=== PATIENT | female | born 1950 | race Caucasian/White ===

== ENCOUNTER 2017-06-11 17:21 | Emergency (ER) | payer MEDICARE, MEDICAID ==
[2017-06-11 17:41] VITALS: BP 147/85
--- NOTE | 2017-06-11 18:23 | EDM.PDOC ---
ED HPI GENERAL MEDICAL PROBLEM - General Chief Complaint: Upper Extremity Injury/Pain Stated Complaint: LUMP ON ARM Time Seen by Provider: 06/11/17 18:00 Source of Information: Reports: Patient, RN Notes Reviewed, Other (assisted staff member) History Limitations: Reports: Other (intellectually delayed) - History of Present Illness INITIAL COMMENTS - FREE TEXT/NARRATIVE: The patient resides in a senior living, and, according to the staff member who accompanies the patient, the patient was recently moved to a new room where the furniture may slide. Staff apparently noticed a bruise to the patient's left upper arm yesterday, then today they felt that it was swollen and warm to the touch. It is not known how the patient acquired the ecchymosis, although the staff is not aware of the patient falling. Unfortunately, the patient is not able to provide any information. No known prior left upper extremity injury. The patient's PCP is Dr. Corral. - Related Data Allergies Allergy/AdvReac Type Severity Reaction Status Date / Time aspertame Allergy Shaking Uncoded 06/11/17 20:07 Home Meds: Home Meds Acetaminophen [Tylenol Arthritis Pain] 1,300 mg PO BID 07/09/16 [History] Acetaminophen [Tylenol] 650 mg PO Q4H PRN 07/09/16 [History] Aspirin 81 mg PO DAILY 07/09/16 [History] Calcium Carbonate/Vitamin D3 [Calcium 500-Vit D3 200 Caplet] 500 tab PO TID [History] Carbidopa/Levodopa [Carbidopa-Levo 10-100 mg Odt] 1 tab PO BID 07/09/16 [History ] Carbidopa/Levodopa [Carbidopa-Levodopa 25-100 Tab] 1 tab PO BEDTIME 07/09/16 [ History] Divalproex Sodium 250 mg PO DAILY 07/09/16 [History] Divalproex Sodium 500 mg PO BEDTIME 07/09/16 [History] Docusate Calcium [Jeramy-Tin] 240 mg PO BID 07/09/16 [History] Ibuprofen [Motrin] 400 mg PO TID 07/09/16 [History] Magnesium Hydroxide [Milk of Magnesia] 4 tsp PO DAILY PRN 07/09/16 [History] Multivit-Min/FA/Lycopene/Lut [Certavite Sr-Antioxidant Tab] 1 tab PO DAILY 07/09 [History] Nystatin/Triamcinolone Crm [Mycolog Crm] 1 applic TOP TID PRN 07/09/16 [History] Omeprazole 20 mg PO DAILY 07/09/16 [History] Primidone 100 mg PO DAILY 07/09/16 [History] Thioridazine [Mellaril] 5 mg PO BEDTIME 07/09/16 [History] risperiDONE 2 mg PO BID 07/09/16 [History] Past Medical History HEENT History: Reports: Cataract Musculoskeletal History: Reports: Osteoporosis Neurological History: Reports: Other (See Below) (Intellectually delayed) Endocrine/Metabolic History: Reports: Other (See Below) (Phenylketonuria (PKU)) - Past Surgical History Musculoskeletal Surgical History: Reports: Other (See Below) (Bilateral knee surgery (unspecified), and surgery on both arms (unspecified)) Social & Family History - Tobacco Use Smoking Status *Q: Never Smoker - Alcohol Use Alcohol Use History: No - Recreational Drug Use Recreational Drug Use: No - Living Situation & Occupation Living situation: Reports: Single, Other (assisted) Occupation: Disabled Review of Systems - Review of Systems Review Of Systems: See Below Constitutional: Reports: No Symptoms Eyes: Reports: No Symptoms Ears: Reports: No Symptoms Nose: Reports: No Symptoms Mouth/Throat: Reports: No Symptoms Respiratory: Reports: No Symptoms Cardiovascular: Reports: No Symptoms GI/Abdominal: Reports: No Symptoms Genitourinary: Reports: No Symptoms Musculoskeletal: Reports: No Symptoms Skin: Reports: No Symptoms Neurological: Reports: No Symptoms Psychiatric: Reports: No Symptoms ED EXAM, GENERAL - Physical Exam Exam: See Below Exam Limited By: No Limitations General Appearance: Alert, WD/WN, No Apparent Distress Extremities: Other (There is an approximately 13 semierect 10 cm ecchymosis to the anteromedial aspect of the patient's left upper arm. It may be tender to palpation. Possible tenderness to palpation of the humerus, but no obvious deformity to palpation. Neurovascular status of the left upper extremity is intact.) ED TRAUMA EXTREMITY PROCEDURES - Joint Reduction Site: Shoulder (L) Sedation: Conscious Cedation Pre-Procedure NV Status: Normal Post-Procedure NV Status: Normal Technique: Traction/Counter Traction Number of Attempts: 1 Post-Reduction Imaging: Completely Reduced, Fracture Seen Joint Reduction Complications: No Course - Vital Signs Last Recorded V/S: Last Vital Signs Temp 37.2 C 06/11/17 17:33 Pulse 93 06/11/17 17:33 Resp 16 06/11/17 17:33 BP 147/85 H 06/11/17 17:33 Pulse Ox 94 L 06/11/17 17:45 - Orders/Labs/Meds Orders: Active Orders 24 hr Category Date Time Status Humerus Lt [CR] Stat Exams 06/11/17 18:17 Taken Shoulder Comp Lt [CR] Stat Exams 06/11/17 22:06 Ordered Shoulder wo Cont Lt [CT] Stat Exams 06/11/17 19:49 Taken Meds: Medications Discontinued Medications Generic Name Dose Route Start Last Admin Trade Name Freq PRN Reason Stop Dose Admin Hydromorphone HCl Confirm 06/11/17 21:46 Dilaudid Administered 06/11/17 21:47 Dose 2 mg .ROUTE .STK-MED ONE Midazolam HCl Confirm 06/11/17 21:45 Versed 1 Mg/Ml Administered 06/11/17 21:46 Dose 4 mg .ROUTE .STK-MED ONE - Re-Assessments/Exams Free Text/Narrative Re-Assessment/Exam: 06/11/17 19:18 3-view radiographs of the left humerus appears to demonstrate an anterior dislocation. There appears to be a bony fragment near the posterior aspect of the humeral head, likely off of the glenoid. Osteopenia. Formal read per the Radiologist pending. 06/11/17 19:48 I spoke with the patient's sister, Darlin Leon, who is the patient's guardian. She agrees to proceeding with closed reduction of the shoulder under sedation. I am going to order a CT scan of the shoulder to better determine the anatomy, prior to attempting to reduce the shoulder. 06/11/17 21:26 CT of the shoulder without contrast is read by [facility] as "Comminuted Hill-Sachs fracture deformity and anteroinferior dislocation. There is associated joint effusion and soft tissue swelling." Case then discussed with Dr. Flores at 21:23. He recommends that I attempt to reduce the shoulder. If the dislocation is chronic, as suggested by the joint effusion and soft tissue swelling, I may not be able to reduce the shoulder, and if that is the case, he recommends that I admit the patient overnight, and he will take her to the operating room tomorrow to try to reduce it. Sometimes these shoulders cannot be reduced, and the patient would then be discharged with the dislocation as a permanent condition. 06/11/17 22:06 After sedation with Versed 1 mg and Dilaudid 1 mg, attempt was made to reduce the shoulder via the traction/countertraction method. The sedation did not appear to be adequate, therefore the patient was given a second milligram of Dilaudid. Additional attempts were made, but I don't think the shoulder is reduced. I have ordered a post-procedure shoulder x-ray to confirm. 06/11/17 22:26 Y-view of the left shoulder appears to demonstrate reduction of the shoulder. Formal read per the Radiologist pending. I will order an arm sling, and discharged the patient home. I would like her to follow-up with Dr. Flores. Departure - Departure Time of Disposition: 22:27 Disposition: Home, Self-Care 01 Condition: Good Clinical Impression: Dislocation of left shoulder joint - Discharge Information Referrals: Kris Corral MD [Primary Care Provider] - Merrill Flores MD [Physician] - Forms: ED Department Discharge Additional Instructions: Ms. Bess was seen in the emergency room for a large bruise on her upper left arm. X-rays of the left arm showed that her left shoulder was dislocated, and there is a fracture of the humeral head. Following sedation, her left shoulder has been reduced (put back in place). Her left arm has been placed into an arm sling. She may have [id number] ibuprofen as needed for discomfort. Have her follow-up with the Orthopedic Surgeon Dr. Flores this week. If any other problems, please do not hesitate to return Ms. Bess to the ER. - My Orders Last 24 Hours: My Active Orders 06/11/17 18:17 Humerus Lt [CR] Stat 06/11/17 19:49 Shoulder wo Cont Lt [CT] Stat 06/11/17 22:06 Shoulder Comp Lt [CR] Stat - Assessment/Plan Last 24 Hours: My Active Orders 06/11/17 18:17 Humerus Lt [CR] Stat 06/11/17 19:49 Shoulder wo Cont Lt [CT] Stat 06/11/17 22:06 Shoulder Comp Lt [CR] Stat
[2017-06-11] MEDS ORDERED: Midazolam 1 MG/ML 2 ML SDV ONE (21:45)
[2017-06-11] MEDS ORDERED: Midazolam 1 MG/ML 2 ML SDV IVPUSH ONE (21:45)
[2017-06-11] MEDS ORDERED: HYDROmorphone 1 MG/ML Syringe ONE (21:46)
[2017-06-11] MEDS ORDERED: HYDROmorphone 1 MG/ML Syringe IVPUSH ONE (21:46)
[2017-06-12] MEDS ORDERED: HYDROmorphone 1 MG/ML Syringe IVPUSH ONE (02:51)
--- NOTE | 2017-06-12 09:50 | CR ---
Left shoulder: Y scapular view was obtained. Comparison: Previous exams are available. Previous dislocation has been reduced. Previous fracture also shows better alignment and is poorly seen on this Y scapular view. No additional abnormality is seen. Impression: 1. Previous dislocation has been reduced. Fracture fragments also appear better in alignment. Diagnostic code #1
--- NOTE | 2017-06-12 09:51 | CR ---
Left humerus: Two views of the left humerus were obtained. Comparison: No previous study. Inferior and anterior dislocation is seen of the humerus in relation to the glenoid. Bony fragments are seen off the greater tuberosity of the humerus. No definite fracture within the glenoid is seen. Acromioclavicular joint is unremarkable. Other portions of the left humerus study appear within normal limits. There is a dystrophic calcification being seen within the soft tissues of the left upper extremity. Impression: 1. Fracture and dislocation of left shoulder. Diagnostic code #3
--- NOTE | 2017-06-12 11:03 | CT ---
CT left shoulder Technique: Multiple axial sections were obtained through the left shoulder. Comparison: Previous humerus study performed earlier on the same date (6:48 PM). Humeral head is dislocated in an anterior and inferior direction. Comminuted fracture identified involving the greater tuberosity. Greater tuberosity fragments show significant displacement. Soft tissue swelling is identified. No additional fracture is seen on this exam. Several old left-sided rib fractures are seen. Impression: 1. Inferior and anterior dislocation of the humeral head. 2. Displaced and comminuted greater tuberosity fracture. 3. Several old appearing left-sided rib fractures. Diagnostic code #5 I agree with preliminary report issued by [facility] ([facility] report finalized on , 10:20 PM Central Time) [id number]
== END 2017-06-11 23:40 | disposition home or self-care (01) ==
LOC: JD.ED 17:21
DX: S43.015A Anterior dislocation of left humerus, initial encounter (principal); Z79.82 Long term (current) use of aspirin; Z79.899 Other long term (current) drug therapy; Z88.8 Allergy status to other drugs, medicaments and biological substances; X58.XXXA Exposure to other specified factors, initial encounter
CPT/HCPCS: 23650; 73020; 73060; 73200; 96374; 96375; 99284; J1170; J2250

== ENCOUNTER 2017-06-15 10:03 | Emergency (ER) | payer MEDICARE, MEDICAID ==
[2017-06-15 10:41] VITALS: BP 124/72
[2017-06-15] MEDS ORDERED: Desmopressin 40 MCG/10 ML ML SUBCUT ONE (11:04)
--- NOTE | 2017-06-15 11:14 | EDM.PDOC ---
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 The patient reportedly fell 3 or 4 days ago and was seen in this emergency department and diagnosed with a left humerus fracture which was treated with a sling. She followed up with clinic provider Dr. Corral today who ordered a head scan due to her being less steady on her feet compared to usual. According to her caretakers who are here with her today, she hasn't had any other significant change in her mental status. At baseline she is able to talk using very simple words and able to help with her activities of daily living and walk without assistance. Today she' s been able to walk but requires existence and is unsteady and also just seems uncomfortable. Her head scan at outside clinic reportedly showed a subdural hemorrhage so she was sent here. She does take baby aspirin but no other blood thinners. No vomiting. No additional complaint. - Related Data Allergies Allergy/AdvReac Type Severity Reaction Status Date / Time aspertame Allergy Shaking Uncoded 06/15/17 10:36 Home Meds: Home Meds Acetaminophen [Tylenol Arthritis Pain] 1,300 mg PO BID 07/09/16 [History] Acetaminophen [Tylenol] 650 mg PO Q4H PRN 07/09/16 [History] Aspirin 81 mg PO DAILY 07/09/16 [History] Calcium Carbonate/Vitamin D3 [Calcium 500-Vit D3 200 Caplet] 500 tab PO TID [History] Carbidopa/Levodopa [Carbidopa-Levo 10-100 mg Odt] 1 tab PO BID 07/09/16 [History ] Carbidopa/Levodopa [Carbidopa-Levodopa 25-100 Tab] 1 tab PO BEDTIME 07/09/16 [ History] Divalproex Sodium 250 mg PO DAILY 07/09/16 [History] Divalproex Sodium 500 mg PO BEDTIME 07/09/16 [History] Docusate Calcium [Jeramy-Tin] 240 mg PO BID 07/09/16 [History] Ibuprofen [Motrin] 400 mg PO TID 07/09/16 [History] Magnesium Hydroxide [Milk of Magnesia] 4 tsp PO DAILY PRN 07/09/16 [History] Multivit-Min/FA/Lycopene/Lut [Certavite Sr-Antioxidant Tab] 1 tab PO DAILY 07/09 [History] Nystatin/Triamcinolone Crm [Mycolog Crm] 1 applic TOP TID PRN 07/09/16 [History] Omeprazole 20 mg PO DAILY 07/09/16 [History] Primidone 100 mg PO DAILY 07/09/16 [History] Thioridazine [Mellaril] 5 mg PO BEDTIME 07/09/16 [History] risperiDONE 2 mg PO BID 07/09/16 [History] Past Medical History HEENT History: Reports: Cataract Gastrointestinal History: Reports: Other (See Below) Other Gastrointestinal History: PKU Musculoskeletal History: Reports: Osteoporosis Neurological History: Reports: Other (See Below) Psychiatric History: Reports: Other (See Below) Other Psychiatric History: severe mental retardation Endocrine/Metabolic History: Reports: Other (See Below) - Past Surgical History Musculoskeletal Surgical History: Reports: Other (See Below) Social & Family History - Tobacco Use Smoking Status *Q: Never Smoker - Recreational Drug Use Recreational Drug Use: No - Living Situation & Occupation Living situation: Reports: Single, Other (custodial) Occupation: Disabled ED ROS GENERAL - Review of Systems Review Of Systems: Unable To Obtain ED EXAM, NEURO - Physical Exam Exam: See Below Exam Limited By: Uncooperative General Appearance: Alert, Other (eyes closed, looks uncomfortable appearing, nonverbal, calm, doesn't cooperate with exam) Eye Exam: Bilateral Eye: EOMI, PERRL Ears: Normal External Exam Nose: Normal Inspection, Normal Mucosa, No Blood Head Exam: Atraumatic, Normocephalic Neck: Supple, Non-Tender Respiratory/Chest: No Respiratory Distress, Lungs Clear, Normal Breath Sounds, Chest Non-Tender Cardiovascular: Normal Peripheral Pulses, Regular Rate, Rhythm GI/Abdominal: Soft, Non-Tender, No Distention. No: Rebound Neurological: Other (awake, alert, no facial droop, moves all extremities, doesn 't otherwise cooperate with exam) Extremities: Other (LUE in sling) Psychiatric: Flat Affect, Other (similar to baseline per foot and ankle surgeon) Skin Exam: Warm, Dry, Intact, Normal Color, No Rash Course - Vital Signs Last Recorded V/S: Last Vital Signs Temp 36.9 C 06/15/17 10:36 Pulse Resp BP 124/72 06/15/17 10:36 Pulse Ox - Orders/Labs/Meds Orders: Active Orders 24 hr Category Date Time Status Peripheral IV Care [RC] . DIRECTED Care 06/15/17 10:50 Active PATIENT RETYPE [BBK] Stat Lab 06/15/17 11:58 Results TYPE AND SCREEN [BBK] Stat Lab 06/15/17 11:58 Results Labs: Laboratory Tests 06/15/17 06/15/17 06/15/17 Range/Units 11:58 11:58 11:58 WBC 8.24 (3.98-10.04) K/mm3 RBC 3.20 L (3.98-5.22) M/mm3 Hgb 10.6 L (11.2-15.7) gm/L Hct 32.6 L (34.1-44.9) % MCV 101.9 H (79.4-94.8) fl MCH 33.1 H (25.6-32.2) pg MCHC 32.5 (32.2-35.5) g/dl RDW Std Deviation 46.1 (36.4-46.3) fL Plt Count 253 (182-369) K/mm3 MPV 9.6 (9.4-12.3) fl Neut % (Auto) 76.8 H (34.0-71.1) % Lymph % (Auto) 13.0 L (19.3-51.7) % Florence % (Auto) 9.6 (4.7-12.5) % Eos % (Auto) 0.2 L (0.7-5.8) Baso % (Auto) 0.2 (0.1-1.2) % Neut # (Auto) 6.32 H (1.56-6.13) K/mm3 Lymph # (Auto) 1.07 L (1.18-3.74) K/mm3 Florence # (Auto) 0.79 H (0.24-0.36) K/mm3 Eos # (Auto) 0.02 L (0.04-0.36) K/mm3 Baso # (Auto) 0.02 (0.01-0.08) K/mm3 PT 10.6 (8.0-13.0) SECONDS INR 0.97 Sodium 142 (136-145) mEq/L Potassium 3.8 (3.5-5.1) mEq/L Chloride 106 (98-107) mEq/L Carbon Dioxide 26 (21-32) mEq/L Anion Gap 13.8 (5-15) BUN 16 (7-18) mg/dL Creatinine 0.7 (0.55-1.02) mg/dL Est Cr Clr Drug Dosing 60.84 mL/min Estimated GFR (MDRD) > 60 (>60) mL/min BUN/Creatinine Ratio 22.9 H (14-18) Glucose 97 (80-115) mg/dL Calcium 9.0 (8.5-10.1) mg/dL Total Bilirubin 0.4 (0.2-1.0) mg/dL AST 22 (15-37) U/L ALT 25 (14-59) U/L Alkaline Phosphatase 56 (46-116) U/L Total Protein 7.3 (6.4-8.2) g/dl Albumin 3.2 L (3.4-5.0) g/dl Globulin 4.1 gm/dL Albumin/Globulin Ratio 0.8 L (1-2) Blood Type Gel Antibody Screen 06/15/17 Range/Units 11:58 WBC (3.98-10.04) K/mm3 RBC (3.98-5.22) M/mm3 Hgb (11.2-15.7) gm/L Hct (34.1-44.9) % MCV (79.4-94.8) fl MCH (25.6-32.2) pg MCHC (32.2-35.5) g/dl RDW Std Deviation (36.4-46.3) fL Plt Count (182-369) K/mm3 MPV (9.4-12.3) fl Neut % (Auto) (34.0-71.1) % Lymph % (Auto) (19.3-51.7) % Florence % (Auto) (4.7-12.5) % Eos % (Auto) (0.7-5.8) Baso % (Auto) (0.1-1.2) % Neut # (Auto) (1.56-6.13) K/mm3 Lymph # (Auto) (1.18-3.74) K/mm3 Florence # (Auto) (0.24-0.36) K/mm3 Eos # (Auto) (0.04-0.36) K/mm3 Baso # (Auto) (0.01-0.08) K/mm3 PT (8.0-13.0) SECONDS INR Sodium (136-145) mEq/L Potassium (3.5-5.1) mEq/L Chloride (98-107) mEq/L Carbon Dioxide (21-32) mEq/L Anion Gap (5-15) BUN (7-18) mg/dL Creatinine (0.55-1.02) mg/dL Est Cr Clr Drug Dosing mL/min Estimated GFR (MDRD) (>60) mL/min BUN/Creatinine Ratio (14-18) Glucose (80-115) mg/dL Calcium (8.5-10.1) mg/dL Total Bilirubin (0.2-1.0) mg/dL AST (15-37) U/L ALT (14-59) U/L Alkaline Phosphatase (46-116) U/L Total Protein (6.4-8.2) g/dl Albumin (3.4-5.0) g/dl Globulin gm/dL Albumin/Globulin Ratio (1-2) Blood Type O POSITIVE Gel Antibody Screen Negative Meds: Medications Discontinued Medications Generic Name Dose Route Start Last Admin Trade Name Otto PRN Reason Stop Dose Admin Desmopressin Acetate 20 mcg 06/15/17 11:30 06/15/17 12:07 Desmopressin SUBCUT 06/15/17 11:31 Not Given ONETIME ONE Non-Formulary Medication 1 each 06/15/17 12:08 06/15/17 12:22 Nf Drug .XX 06/15/17 12:09 1 each NOW STA Administration - Re-Assessments/Exams Free Text/Narrative Re-Assessment/Exam: 06/15/17 11:16 11:00 message left for POA sister Nydia [phone]. Transfer process initiated at 11:15, [facility] called awaiting callback from [facility]. DDAVP ordered given daily aspirin, no additional bloodthinners on med list. Sister consents for transfer per ED nursing staff who have spoken with her. 06/15/17 11:[address] Mcgarry, neurosurgery at [facility], who accepts patient for transfer, recommends patient go through the ED given fall/co-morbidities. 06/15/17 11:32 Dr. Garnett in ED who accepts patient for transfer. Departure - Departure Time of Disposition: 12:00 Disposition: DC/Tfer to [facility] 02 Clinical Impression: Subdural hematoma Cerebral contusion Qualifiers: Encounter type: initial encounter Laterality: right Loss of consciousness presence/duration: without LOC Qualified Code(s): S06.310A - Contusion and laceration of right cerebrum without loss of consciousness, initial encounter - Discharge Information Referrals: Kris Corral MD [Primary Care Provider] - Forms: ED Department Discharge - My Orders Last 24 Hours: My Active Orders 06/15/17 10:50 Peripheral IV Care [RC] . DIRECTED 06/15/17 11:58 PATIENT RETYPE [BBK] Stat TYPE AND SCREEN [BBK] Stat - Assessment/Plan Last 24 Hours: My Active Orders 06/15/17 10:50 Peripheral IV Care [RC] . DIRECTED 06/15/17 11:58 PATIENT RETYPE [BBK] Stat TYPE AND SCREEN [BBK] Stat
[2017-06-15] MEDS ORDERED: Desmopressin 4 MCG/1 ML Amp SUBCUT ONE (11:30)
[2017-06-15] MEDS ORDERED: Non-Formulary Medication 1 Each STA (12:08)
== END 2017-06-15 12:45 ==
LOC: JD.ED 10:03
DX: S06.310A Contusion and laceration of right cerebrum without loss of consciousness, initial encounter (principal); M81.0 Age-related osteoporosis without current pathological fracture; Z79.899 Other long term (current) drug therapy; Z88.8 Allergy status to other drugs, medicaments and biological substances; W19.XXXA Unspecified fall, initial encounter
CPT/HCPCS: 36415; 80053; 85025; 85610; 86850; 86900; 86901; 96365; 99285; A9270; 99284

== ENCOUNTER 2018-05-27 13:24 | Emergency (ER) | payer MEDICARE, MEDICAID ==
[2018-05-27 13:41] VITALS: BP 152/92
--- NOTE | 2018-05-27 14:05 | EDM.PDOC ---
ED HPI GENERAL MEDICAL PROBLEM - General Chief Complaint: Lower Extremity Injury/Pain Stated Complaint: FALL/ KNEE PAIN Time Seen by Provider: 05/27/18 13:45 Source of Information: Reports: Other (Cosmetic Maker) History Limitations: Reports: Altered Mental Status - History of Present Illness INITIAL COMMENTS - FREE TEXT/NARRATIVE: Patient is a 68-year-old female that's mentally disabled presently has senior manager with her complaining of right knee pain. Cosmetic Maker states the patient fell this morning while sitting on her shower chair. She slipped off his since then complained of increasing right knee discomfort. Pain is worse with palpation and also weightbearing. Patient with questioning is only able to state yes or no but mostly moans. This is normal for the patient. Cosmetic Maker states the patient did not get knocked out. She did have a slight abrasion noted to the right lateral thoracic spine. No pain with palpation. No hematoma , ecchymosis, or swelling noted. They state since the fall this morning the patient's pain to the right knee has worsened. Cosmetic Maker states the patient is obviously uncomfortable. She is on no anticoagulants. Cosmetic Maker states the patient did complain of some right knee discomfort yesterday. Unclear etiology of current complaint at that point. Right Knee Pain Score (Numeric/FACES): 6 - Related Data Allergies Allergy/AdvReac Type Severity Reaction Status Date / Time aspertame Allergy Shaking Uncoded 05/27/18 13:41 Home Meds: Home Meds Acetaminophen [Tylenol Arthritis Pain] 1,300 mg PO BID 07/09/16 [History] Acetaminophen [Tylenol] 650 mg PO Q4H PRN 07/09/16 [History] Aspirin 81 mg PO DAILY 07/09/16 [History] Calcium Carbonate/Vitamin D3 [Calcium 500-Vit D3 200 Caplet] 500 tab PO TID [History] Carbidopa/Levodopa [Carbidopa-Levo 10-100 mg Odt] 1 tab PO BID 07/09/16 [History ] Carbidopa/Levodopa [Carbidopa-Levodopa 25-100 Tab] 1 tab PO BEDTIME 07/09/16 [ History] Divalproex Sodium 250 mg PO DAILY 07/09/16 [History] Divalproex Sodium 500 mg PO BEDTIME 07/09/16 [History] Docusate Calcium [Jeramy-Tin] 240 mg PO BID 07/09/16 [History] Ibuprofen [Motrin] 400 mg PO TID 07/09/16 [History] Magnesium Hydroxide [Milk of Magnesia] 4 tsp PO DAILY PRN 07/09/16 [History] Multivit-Min/FA/Lycopene/Lut [Certavite Sr-Antioxidant Tab] 1 tab PO DAILY 07/09 [History] Nystatin/Triamcinolone Crm [Mycolog Crm] 1 applic TOP TID PRN 07/09/16 [History] Omeprazole 20 mg PO DAILY 07/09/16 [History] Primidone 100 mg PO DAILY 07/09/16 [History] Thioridazine [Mellaril] 5 mg PO BEDTIME 07/09/16 [History] risperiDONE 1 mg PO BID 07/09/16 [History] Escitalopram [Lexapro] 20 mg PO DAILY 05/27/18 [History] Mag Hydrox/Al Hydrox/Simeth [Mi Acid Suspension] 1 tab PO TID 05/27/18 [History] Ondansetron [Zofran ODT] 4 mg PO Q6H PRN #12 tab.dis 05/27/18 [Rx] Psyllium Husk (With Sugar) [Natural Fiber Powder] 1 tsp PO BID 05/27/18 [History ] Past Medical History HEENT History: Reports: Cataract Gastrointestinal History: Reports: Other (See Below) Other Gastrointestinal History: PKU Musculoskeletal History: Reports: Osteoporosis Neurological History: Reports: Other (See Below) Psychiatric History: Reports: Other (See Below) Other Psychiatric History: severe mental retardation Endocrine/Metabolic History: Reports: Other (See Below) - Past Surgical History Musculoskeletal Surgical History: Reports: Other (See Below) Social & Family History - Tobacco Use Smoking Status *Q: Never Smoker - Living Situation & Occupation Living situation: Reports: Single, Other (snf) Occupation: Disabled Review of Systems - Review of Systems Review Of Systems: ROS reveals no pertinent complaints other than HPI. ED EXAM, GENERAL - Physical Exam Exam: See Below Exam Limited By: Uncooperative (Mentally handicapped) General Appearance: Alert, Mild Distress Eye Exam: Bilateral Eye: EOMI (Examination is limited.), PERRL (Unable to ascertain. Patient does not follow commands.) Ears: Normal External Exam, Normal Canal (No obvious fluid present.), Hearing Grossly Normal Nose: Normal Inspection Throat/Mouth: Other Neck: Normal Inspection, Supple, Full Range of Motion, Tender Midline Respiratory/Chest: No Respiratory Distress, Lungs Clear, Normal Breath Sounds, No Accessory Muscle Use, Chest Non-Tender Cardiovascular: Normal Peripheral Pulses, Regular Rate, Rhythm, No Murmur Peripheral Pulses: 4+: Radial (L), Radial (R) GI/Abdominal: Normal Bowel Sounds, Soft, Non-Tender, No Organomegaly, No Distention Back Exam: Normal Inspection Extremities: Normal Inspection, Normal Range of Motion, Non-Tender, No Pedal Edema, Normal Capillary Refill Neurological: Alert, Oriented, CN II-XII Intact, Normal Cognition, No Motor/ Sensory Deficits Psychiatric: Normal Affect, Normal Mood Skin Exam: Warm, Dry, Intact, Normal Color, No Rash Course - Vital Signs Last Recorded V/S: Last Vital Signs Temp 99.8 F 05/27/18 18:25 Pulse 111 H 05/27/18 13:38 Resp 16 05/27/18 13:38 BP 152/92 H 05/27/18 13:38 Pulse Ox 98 05/27/18 13:38 - Orders/Labs/Meds Orders: Active Orders 24 hr Category Date Time Status Cervical Spine wo Cont [CT] Stat Exams 05/27/18 13:58 Taken Head wo Cont [CT] Stat Exams 05/27/18 13:58 Taken Knee Min 4V Lt [CR] Stat Exams 05/27/18 14:29 Taken Knee Min 4V Rt [CR] Stat Exams 05/27/18 13:58 Taken UA W/MICROSCOPIC [URIN] Stat Lab 05/27/18 15:35 Ordered Labs: Laboratory Tests 05/27/18 05/27/18 Range/Units 15:45 15:45 WBC 4.34 (3.98-10.04) K/mm3 RBC 4.15 (3.98-5.22) M/mm3 Hgb 13.4 (11.2-15.7) gm/L Hct 40.9 (34.1-44.9) % MCV 98.6 H (79.4-94.8) fl MCH 32.3 H (25.6-32.2) pg MCHC 32.8 (32.2-35.5) g/dl RDW Std Deviation 44.9 (36.4-46.3) fL Plt Count 193 (182-369) K/mm3 MPV 10.0 (9.4-12.3) fl Neutrophils % (Manual) 57 (40-60) % Band Neutrophils % 2 (0-10) % Lymphocytes % (Manual) 25 (20-40) % Atypical Lymphs % 0 % Monocytes % (Manual) 12 H (2-10) % Eosinophils % (Manual) 2 (0.7-5.8) % Basophils % (Manual) 2 H (0.1-1.2) Platelet Estimate Adequate RBC Morph Comment Normal Sodium 147 H (136-145) mEq/L Potassium 4.1 (3.5-5.1) mEq/L Chloride 110 H (98-107) mEq/L Carbon Dioxide 29 (21-32) mEq/L Anion Gap 12.1 (5-15) BUN 19 H (7-18) mg/dL Creatinine 0.8 (0.55-1.02) mg/dL Est Cr Clr Drug Dosing 52.49 mL/min Estimated GFR (MDRD) > 60 (>60) mL/min BUN/Creatinine Ratio 23.8 H (14-18) Glucose 115 (80-115) mg/dL Calcium 8.8 (8.5-10.1) mg/dL Total Bilirubin 0.3 (0.2-1.0) mg/dL AST 23 (15-37) U/L ALT 43 (14-59) U/L Alkaline Phosphatase 82 (46-116) U/L C-Reactive Protein < 0.2 (<1.0) mg/dL Total Protein 6.8 (6.4-8.2) g/dl Albumin 3.7 (3.4-5.0) g/dl Globulin 3.1 gm/dL Albumin/Globulin Ratio 1.2 (1-2) Meds: Medications Discontinued Medications Generic Name Dose Route Start Last Admin Trade Name Freq PRN Reason Stop Dose Admin Ondansetron HCl 4 mg 05/27/18 17:53 05/27/18 18:21 Zofran Odt PO 05/27/18 17:54 4 mg ONETIME ONE Administration - Re-Assessments/Exams Free Text/Narrative Re-Assessment/Exam: Ordered CT of the head and cervical spine w/o contrast. I have ordered x-ray of the right knee as well. 05/27/18 14:25 x-ray tech has called and states the patient complaining of left knee pain. Per patient's senior manager she has a small hematoma to the left knee which is nothing new. She has chronic pain to the left knee. I have opted to order x-ray of the left knee as well. CT of the cervical spine impression: No acute bony abnormalities noted. CT of the head impression: No acute intrathoracic hemorrhage noted. X-ray of the right and left knee reviewed with Dr. Goodson. No acute bony abnormalities noted. Final interpretation is pending. 1528 Spoke with normal Cosmetic Maker. She states patients mentation is abnormal. Has history of UTI. No recent treatments. Today had one episode of diarrhea. No N/V or fever. No upper respiratory symptoms noted. Patient has been eating and drinking as normal. Requested bloodwork and ua. This has been ordered. Per nursing staff patient had a large bowel movement and also one episode of emesis. Patient was administered milk of magnesia by caretakers today with concerns of being constipated. Nausea has subsided. Patient's had no additional vomiting. Mentation is normal per caretakers. Suspect patient has concussion with recent fall and hitting her head. GI bug is not out of the differential/diagnosis as well. Return precautions discussed with caretakers. They had no further questions or concerns. Plan is for patient to followup with PCP in the next 2 days. Discharge instructions as documented. Departure - Departure Time of Disposition: 18:41 Disposition: Home, Self-Care 01 Condition: Good Clinical Impression: Concussion Qualifiers: Encounter type: initial encounter Loss of consciousness presence/duration: without LOC Qualified Code(s): S06.0X0A - Concussion without loss of consciousness, initial encounter Nausea & vomiting Qualifiers: Vomiting type: unspecified Vomiting Intractability: non-intractable Qualified Code(s): R11.2 - Nausea with vomiting, unspecified Strain of knee and leg, right Qualifiers: Encounter type: initial encounter Qualified Code(s): S86.911A - Strain of unspecified muscle(s) and tendon(s) at lower leg level, right leg, initial encounter Contusion of left knee Qualifiers: Encounter type: initial encounter Qualified Code(s): S80.02XA - Contusion of left knee, initial encounter - Discharge Information Prescriptions: Ondansetron [Zofran ODT] 4 mg PO Q6H PRN #12 tab.dis PRN Reason: Nausea/Vomiting Instructions: Nausea, Adult, Concussion, Adult, [id number], Head Injury, Adult, Nausea and Vomiting, Adult, [id number], Contusion, [id number], Post- Concussion Syndrome Referrals: Kris Corral MD [Primary Care Provider] - Forms: ED Department Discharge Additional Instructions: Please review the education documents as provided. May use Zofran 4 mg every 6 hours ODT for nausea and vomiting. Stick with clear liquid diet for the next 12 hours. Advance diet as tolerated thereafter. Monitor for any changes in mentation, focal neurological deficits, weakness, projectile vomiting, worsening pain, or any additional concerning symptoms. Utilize Tylenol and Motrin in alternating fashion for pain. Apply ice to affected areas as needed throughout the course today, 20 minutes in duration, do not apply ice directly on the skin. Refrain from any activities that cause worsening pain. Follow-up with PCP in the next 2-3 days for reevaluation as needed. Return to the ED for any new or worsening symptoms. - My Orders Last 24 Hours: My Active Orders 05/27/18 13:58 Cervical Spine wo Cont [CT] Stat Head wo Cont [CT] Stat Knee Min 4V Rt [CR] Stat 05/27/18 14:29 Knee Min 4V Lt [CR] Stat 05/27/18 15:35 UA W/MICROSCOPIC [URIN] Stat - Assessment/Plan Last 24 Hours: My Active Orders 05/27/18 13:58 Cervical Spine wo Cont [CT] Stat Head wo Cont [CT] Stat Knee Min 4V Rt [CR] Stat 05/27/18 14:29 Knee Min 4V Lt [CR] Stat 05/27/18 15:35 UA W/MICROSCOPIC [URIN] Stat
[2018-05-27] MEDS ORDERED: Ondansetron 4 MG Tab.DIS PO ONE (17:53)
--- NOTE | 2018-05-28 07:43 | CR ---
Left knee: Four views of the left knee were obtained. Comparison: No previous knee exam. Deformity of the patella is seen with orthopedic hardware in place compatible with old fracture deformity. Bony density is seen superior to the patella which is compatible with old injury. Moderate medial joint space narrowing is seen. Lateral joint space is preserved. Bony structures are osteopenic. No acute abnormality is seen. Impression: 1. Moderate medial joint space narrowing and deformity of the patella from old healed fracture. 2. Nothing acute is appreciated. Diagnostic code #3
--- NOTE | 2018-05-28 07:43 | CR ---
Right knee: Four views of the right knee were obtained. Comparison: No prior right knee exam is available. Mild lateral joint space narrowing is seen with lateral osteophytes. Minimal osteophytes are noted off the medial joint. Small joint effusion is seen. No acute fracture is identified. Well corticated bony density is seen off the anterior tibia and off the inferior patella. Impression: 1. Small joint effusion. 2. Degenerative change as described above. 3. No acute abnormality is identified on right knee exam. Diagnostic code #2
--- NOTE | 2018-05-28 08:29 | CT ---
Head CT Technique: Multiple axial sections through the brain were obtained. Intravenous contrast was not utilized. Comparison: No prior intracranial imaging. Findings: Ventricles along with basal cisterns and sulci over the convexities are mildly to markedly prominent. Diminished density is noted within the periventricular and subcortical white matter which is compatible with small vessel ischemic demyelination change. Atrophy is also noted within the cerebellum. Prior right-sided frontal craniotomy is noted. Minimal mucosal thickening is seen within the left frontal sinus. No acute calvarial abnormality is seen. Atherosclerotic calcification is noted within the carotid siphon. Impression: 1. Senescent change as described above. Previous right frontal craniotomy. 2. Nothing acute is identified on noncontrast head CT exam. Diagnostic code #3 I agree with preliminary report from [facility], finalized at 05/27/18, 4:10 PM Central Time
--- NOTE | 2018-05-28 08:30 | CT ---
CT cervical spine Technique: Multiple axial sections were obtained from above C1 inferior to the top of T2. Reconstructed sagittal and coronal images were reviewed. Comparison: No prior cervical spine imaging is available. Findings: Moderate disc space narrowing is noted at C3-C4, C4-C5, C5-C6, C6-C7 and C7-T1. Mild posterior osteophytes are seen at these levels as well as minimal scattered degenerative spurring within the uncovertebral joints. Kyphoscoliosis is noted. No fracture is appreciated. No bony central or bony neural foraminal stenosis is seen. Incidental ligamentum nuchal calcification is seen. Impression: 1. Scattered degenerative change as noted above. Kyphoscoliosis is also noted. 2. No acute fracture or acute subluxation is seen. Diagnostic code #2 I agree with preliminary report from [facility], finalized at 05/27/18, 4:16 PM Central Time
== END 2018-05-27 19:55 | disposition home or self-care (01) ==
LOC: JD.ED 13:24
DX: S06.0X0A Concussion without loss of consciousness, initial encounter (principal); S86.911A Strain of unspecified muscle(s) and tendon(s) at lower leg level, right leg, initial encounter; S80.02XA Contusion of left knee, initial encounter; R11.2 Nausea with vomiting, unspecified; Z88.8 Allergy status to other drugs, medicaments and biological substances; Z79.82 Long term (current) use of aspirin; Z79.899 Other long term (current) drug therapy
CPT/HCPCS: 36415; 70450; 72125; 73564; 80053; 85007; 85027; 86140; 99284; A9270

== ENCOUNTER 2018-12-29 17:32 | Emergency (ER) | payer MEDICARE, MEDICAID ==
[2018-12-29 17:48] VITALS: BP 105/48
--- NOTE | 2018-12-29 18:24 | EDM.PDOC ---
ED HPI GENERAL MEDICAL PROBLEM - General Chief Complaint: Gastrointestinal Problem Stated Complaint: BLOOD IN STOOLS AND LETHARGIC Time Seen by Provider: 12/29/18 18:05 Source of Information: Reports: Patient, RN History Limitations: Reports: Other - History of Present Illness INITIAL COMMENTS - FREE TEXT/NARRATIVE: Patient is a 68-year-old female with a history of severe mental retardation, tarry type dyskinesia, Parkinson's, osteoporosis, PKU, and GERD who presents to the ED with concerns of coffee-ground stool this morning with generalized weakness. Patient is a resident of [facility] and nurse who is present states patient had this episode approximately 11 o'clock this morning. Throughout the course of today patient's required more assistance than usual. They're concerned patient is experiencing a GI bleed. Patient appears to be having some abdominal discomfort but is unable to voice more than 1-2 words. She's only had one episode of coffee-ground stool this morning. No actual deborah blood present. Patient's been afebrile with no chest pain, shortness breath, nausea/vomiting, dysuria, hematuria, or change in appetite noted. Per nursing staff present patient has no history EGD are colonoscopy. There is no history of GI bleed as well. Patient is on ibuprofen 400 mg 3 times a day along with aspirin 81 mg everyday as well. She is on omeprazole 20 mg every day. - Related Data Allergies Allergy/AdvReac Type Severity Reaction Status Date / Time aspertame Allergy Shaking Uncoded 12/29/18 17:47 Home Meds: Home Meds Acetaminophen [Tylenol Arthritis Pain] 1,300 mg PO BID 07/09/16 [History] Acetaminophen [Tylenol] 650 mg PO Q4H PRN 07/09/16 [History] Calcium Carbonate/Vitamin D3 [Calcium 500-Vit D3 200 Caplet] 500 tab PO TID [History] Carbidopa/Levodopa [Carbidopa-Levo 10-100 mg Odt] 1 tab PO BID 07/09/16 [History ] Carbidopa/Levodopa [Carbidopa-Levodopa 25-100 Tab] 1 tab PO BEDTIME 07/09/16 [ History] Divalproex Sodium 500 mg PO BID 07/09/16 [History] Docusate Calcium [Jeramy-Tin] 240 mg PO BID 07/09/16 [History] Magnesium Hydroxide [Milk of Magnesia] 4 tsp PO DAILY PRN 07/09/16 [History] Multivit-Min/FA/Lycopene/Lut [Certavite Sr-Antioxidant Tab] 1 tab PO DAILY 07/09 [History] Omeprazole 20 mg PO DAILY 07/09/16 [History] Primidone 200 mg PO DAILY 07/09/16 [History] risperiDONE 1 mg PO DAILY 07/09/16 [History] Escitalopram [Lexapro] 20 mg PO DAILY 05/27/18 [History] Mag Hydrox/Al Hydrox/Simeth [Mi Acid Suspension] 1 tab PO TID 05/27/18 [History] Psyllium Husk (With Sugar) [Natural Fiber Powder] 1 tsp PO BID 05/27/18 [History ] D-Methorphan Hb/P-Ephed HCl/Cp [Pedia Relief Cough-Cold] 4 tsp PO Q4H PRN [History] Mylanta. 2 - 4 tsp PO Q2H PRN 12/29/18 [History] Omeprazole Magnesium [Prilosec Otc] 40 mg PO QAM #28 tablet.dr 12/29/18 [Rx] Triamcinolone Acetonide [Triamcinolone Acetonide 0.1% Crm] 1 applic TOP BID PRN 12/29/18 [History] risperiDONE 2 mg PO BEDTIME 12/29/18 [History] Past Medical History HEENT History: Reports: Cataract Gastrointestinal History: Reports: Other (See Below) Other Gastrointestinal History: PKU Musculoskeletal History: Reports: Osteoporosis Neurological History: Reports: Parkinson's, Other (See Below) Other Neuro History: tardive dyskinesia Psychiatric History: Reports: Other (See Below) Other Psychiatric History: severe mental retardation Endocrine/Metabolic History: Reports: Other (See Below) - Past Surgical History Musculoskeletal Surgical History: Reports: Other (See Below) Social & Family History - Tobacco Use Smoking Status *Q: Never Smoker Second Hand Smoke Exposure: No - Caffeine Use Caffeine Use: Reports: None - Recreational Drug Use Recreational Drug Use: No - Living Situation & Occupation Living situation: Reports: Single, Other (prison) Occupation: Disabled ED ROS GENERAL - Review of Systems Review Of Systems: ROS reveals no pertinent complaints other than HPI. ED EXAM, GI/ABD - Physical Exam Exam: See Below Exam Limited By: Other (Severe mental retartation. Essentially non verbal.) General Appearance: Alert, Mild Distress Ears: Hearing Grossly Normal Nose: Normal Inspection Throat/Mouth: No Airway Compromise, Other (moist oral mucosa. ) Neck: Normal Inspection, Supple Respiratory/Chest: No Respiratory Distress, Lungs Clear, Normal Breath Sounds, No Accessory Muscle Use, Chest Non-Tender Cardiovascular: Normal Peripheral Pulses, Regular Rate, Rhythm GI/Abdominal Exam: Soft, No Distention, Tender (generalized with palpation. ), Abnormal Bowel Sounds (hyperactive. ) Back Exam: Normal Inspection Extremities: Normal Inspection Neurological: Alert Psychiatric: Normal Affect, Normal Mood Skin Exam: Warm, Dry, Intact, Normal Color, No Rash Course - Vital Signs Last Recorded V/S: Last Vital Signs Temp 98.1 F 12/29/18 17:44 Pulse 91 12/29/18 17:44 Resp 18 12/29/18 17:44 BP 105/48 L 12/29/18 17:44 Pulse Ox 98 12/29/18 17:44 - Orders/Labs/Meds Orders: Active Orders 24 hr Category Date Time Status Hemoccult [Fecal Occult Blood Collection] [RC] Care 12/29/18 19:38 Active ASDIRECTED Insert Rivera Catheter [Insert Urinary Catheter] [OM.PC] Care 12/29/18 19:59 Ordered Stat Urinary Catheter Assessment [RC] ASDIRECTED Care 12/29/18 20:00 Active Pantoprazole [ProTONIX IV] 80 mg Med 12/29/18 19:45 Active Sodium Chloride 0.9% [Normal Saline] 100 ml IV Q10H Sodium Chloride 0.9% [Normal Saline] 1,000 ml Med 12/29/18 18:30 Active IV ASDIRECTED Medication Orders Sodium Chloride (Normal Saline) 1,000 mls @ 125 mls/hr IV ASDIRECTED MERRY Last Admin: 12/29/18 19:38 Dose: 125 mls/hr Pantoprazole Sodium 80 mg/ (Sodium Chloride) 100 mls @ 10 mls/hr IV Q10H MERRY Last Admin: 12/29/18 19:53 Dose: 8 mg/hr, 10 mls/hr Labs: Laboratory Tests 12/29/18 12/29/18 12/29/18 Range/Units 19:08 19:08 19:08 WBC 6.09 (3.98-10.04) K/mm3 RBC 3.90 L (3.98-5.22) M/mm3 Hgb 12.6 (11.2-15.7) gm/L Hct 38.2 (34.1-44.9) % MCV 97.9 H (79.4-94.8) fl MCH 32.3 H (25.6-32.2) pg MCHC 33.0 (32.2-35.5) g/dl RDW Std Deviation 47.1 H (36.4-46.3) fL Plt Count 195 (182-369) K/mm3 MPV 10.4 (9.4-12.3) fl Neutrophils % (Manual) 63 H (40-60) % Band Neutrophils % 0 (0-10) % Lymphocytes % (Manual) 31 (20-40) % Atypical Lymphs % 0 % Monocytes % (Manual) 6 (2-10) % Eosinophils % (Manual) 0 L (0.7-5.8) % Basophils % (Manual) 0 L (0.1-1.2) Platelet Estimate Adequate Plt Morphology Comment Normal RBC Morph Comment Normal PT 11.4 (9.5-12.1) SECONDS INR 1.05 APTT 25 (24-31) SECONDS Sodium 142 (136-145) mEq/L Potassium 3.9 (3.5-5.1) mEq/L Chloride 107 (98-107) mEq/L Carbon Dioxide 27 (21-32) mEq/L Anion Gap 11.9 (5-15) BUN 20 H (7-18) mg/dL Creatinine 0.6 (0.55-1.02) mg/dL Est Cr Clr Drug Dosing 63.56 mL/min Estimated GFR (MDRD) > 60 (>60) mL/min BUN/Creatinine Ratio 33.3 H (14-18) Glucose 109 (80-115) mg/dL Lactic Acid (0.4-2.0) mmol/L Calcium 9.0 (8.5-10.1) mg/dL Total Bilirubin 0.2 (0.2-1.0) mg/dL AST 29 (15-37) U/L ALT 40 (14-59) U/L Alkaline Phosphatase 90 (46-116) U/L C-Reactive Protein < 0.2 (<1.0) mg/dL Total Protein 6.4 (6.4-8.2) g/dl Albumin 3.5 (3.4-5.0) g/dl Globulin 2.9 gm/dL Albumin/Globulin Ratio 1.2 (1-2) Lipase 187 (73-393) U/L Urine Color (Yellow) Urine Appearance (Clear) Urine pH (5.0-8.0) Ur Specific [place] (1.005-1.030) Urine Protein (Negative) Urine Glucose (UA) (Negative) Urine Ketones (Negative) Urine Occult Blood (Negative) Urine Nitrite (Negative) Urine Bilirubin (Negative) Urine Urobilinogen (0.2-1.0) Ur Leukocyte Esterase (Negative) Urine RBC (0-5) /hpf Urine WBC (0-5) /hpf Ur Epithelial Cells (0-5) /hpf Urine Bacteria (FEW) /hpf Urine Mucus (FEW) /hpf H. pylori IgG Antibody (NEGATIVE) 12/29/18 12/29/18 12/29/18 Range/Units 19:08 19:08 20:43 WBC (3.98-10.04) K/mm3 RBC (3.98-5.22) M/mm3 Hgb (11.2-15.7) gm/L Hct (34.1-44.9) % MCV (79.4-94.8) fl MCH (25.6-32.2) pg MCHC (32.2-35.5) g/dl RDW Std Deviation (36.4-46.3) fL Plt Count (182-369) K/mm3 MPV (9.4-12.3) fl Neutrophils % (Manual) (40-60) % Band Neutrophils % (0-10) % Lymphocytes % (Manual) (20-40) % Atypical Lymphs % % Monocytes % (Manual) (2-10) % Eosinophils % (Manual) (0.7-5.8) % Basophils % (Manual) (0.1-1.2) Platelet Estimate Plt Morphology Comment RBC Morph Comment PT (9.5-12.1) SECONDS INR APTT (24-31) SECONDS Sodium (136-145) mEq/L Potassium (3.5-5.1) mEq/L Chloride (98-107) mEq/L Carbon Dioxide (21-32) mEq/L Anion Gap (5-15) BUN (7-18) mg/dL Creatinine (0.55-1.02) mg/dL Est Cr Clr Drug Dosing mL/min Estimated GFR (MDRD) (>60) mL/min BUN/Creatinine Ratio (14-18) Glucose (80-115) mg/dL Lactic Acid 1.1 (0.4-2.0) mmol/L Calcium (8.5-10.1) mg/dL Total Bilirubin (0.2-1.0) mg/dL AST (15-37) U/L ALT (14-59) U/L Alkaline Phosphatase (46-116) U/L C-Reactive Protein (<1.0) mg/dL Total Protein (6.4-8.2) g/dl Albumin (3.4-5.0) g/dl Globulin gm/dL Albumin/Globulin Ratio (1-2) Lipase (73-393) U/L Urine Color Yellow (Yellow) Urine Appearance Slt cloudy H (Clear) Urine pH 7.0 (5.0-8.0) Ur Specific [place] 1.010 (1.005-1.030) Urine Protein Negative (Negative) Urine Glucose (UA) Negative (Negative) Urine Ketones Negative (Negative) Urine Occult Blood Negative (Negative) Urine Nitrite Negative (Negative) Urine Bilirubin Negative (Negative) Urine Urobilinogen 0.2 (0.2-1.0) Ur Leukocyte Esterase Negative (Negative) Urine RBC 0-5 (0-5) /hpf Urine WBC 0-5 (0-5) /hpf Ur Epithelial Cells 0-5 (0-5) /hpf Urine Bacteria Few (FEW) /hpf Urine Mucus Not seen (FEW) /hpf H. pylori IgG Antibody Positive H (NEGATIVE) Meds: Medications Generic Name Dose Route Start Last Admin Trade Name Freq PRN Reason Stop Dose Admin Sodium Chloride 1,000 mls @ 125 mls/hr 12/29/18 18:30 12/29/18 19:38 Normal Saline IV 125 mls/hr ASDIRECTED MERRY Administration Pantoprazole Sodium 80 mg/ 100 mls @ 10 mls/hr 12/29/18 19:45 12/29/18 19:53 Sodium Chloride IV 8 mg/hr Q10H MERRY 10 mls/hr Administration 8 MG/HR Discontinued Medications Generic Name Dose Route Start Last Admin Trade Name Freq PRN Reason Stop Dose Admin Iopamidol 100 ml 12/29/18 19:12 12/29/18 20:07 Isovue-300 (61%) IVPUSH 12/29/18 19:13 100 ml ONETIME ONE Administration - Re-Assessments/Exams Free Text/Narrative Re-Assessment/Exam: IV will be established with normal saline. Initial labs and studies will include: CBC, chem 14, CRP, H pylori, lactic acid , lipase, coag studies, UA, and CT the abdomen and pelvis with IV contrast only. 12/29/18 19:38 stool Hemoccult test was grossly positive for blood. Protonix IV drip has been started. Labs reviewed: WBC WNL. HGB 12.6. Platelet count 195. INR 1.05. CMP essentially normal. CRP <0.2. Lipase 187. UA negative. H. Pylori positve. CT abdomen of the pelvis impression: Nonspecific air within the endometrial cavity of the uterus. Other incidental findings. Nothing acute is otherwise seen on ct study of the abdomen and pelvis. I did speak with Dr. Chavira and she does not believe the findings on CT are of any concern. Have patient followup was needed with PCP. Marilu CASTELLANOS staff present at bedside. Patient has no prior hx of h. pylori. Outpatient order for h.pylori stool antigen will be obtained. She will see PCP Monday for results and obtain medications for eradication treatment if antigen for h. pylori is positive. EGD and colonoscopy will be required. Patient's vital signs are stable. Hemoglobin was within normal limits. Patient only had a faint amount of stool within the rectal vault. I did speak with Angélica RED with [facility]. Ibuprofen and ASA will be discontinued. Patient has no history of CAD and or/stroke. She understands plan and had no further questions. Departure - Departure Time of Disposition: 21:50 Disposition: Home, Self-Care 01 Condition: Good Clinical Impression: Helicobacter pylori antibody positive, Positive occult stool blood test, Epigastric abdominal pain - Discharge Information Prescriptions: Omeprazole Magnesium [Prilosec Otc] 40 mg PO QAM #28 tablet. Instructions: Gastrointestinal Bleeding, Helicobacter Pylori Antibodies Test Referrals: Kris Corral MD [Primary Care Provider] - Forms: ED Department Discharge Additional Instructions: Stop taking ibuprofen and aspirin. Take Prilosec 40 mg every a.m. for the next 2 weeks and thereafter may continue normal dose of 20 mg every a.m. H. pylori AB came back positive. Thus further testing for active disease will need to take place. Provide a stool sample to the lab when able for testing. Please see PCP Monday on reevaluation and for results. If H.Pylori antigen test is positive they may start eradication therapy or obtain EGD/Colonoscopy for further evaluation. Please return to the E.D. if patient develops gross bleeding from the rectum, worsening pain, or any additional new/worsening symptoms. - My Orders Last 24 Hours: My Active Orders 12/29/18 18:30 Sodium Chloride 0.9% [Normal Saline] 1,000 ml IV ASDIRECTED 12/29/18 19:38 Hemoccult [Fecal Occult Blood Collection] [RC] ASDIRECTED 12/29/18 19:45 Pantoprazole [ProTONIX IV] 80 mg Sodium Chloride 0.9% [Normal Saline] 100 ml IV Q10H 12/29/18 19:59 Insert Rivera Catheter [Insert Urinary Catheter] [OM.PC] Stat 12/29/18 20:00 Urinary Catheter Assessment [RC] ASDIRECTED - Assessment/Plan Last 24 Hours: My Active Orders 12/29/18 18:30 Sodium Chloride 0.9% [Normal Saline] 1,000 ml IV ASDIRECTED 12/29/18 19:38 Hemoccult [Fecal Occult Blood Collection] [RC] ASDIRECTED 12/29/18 19:45 Pantoprazole [ProTONIX IV] 80 mg Sodium Chloride 0.9% [Normal Saline] 100 ml IV Q10H 12/29/18 19:59 Insert Rivera Catheter [Insert Urinary Catheter] [OM.PC] Stat 12/29/18 20:00 Urinary Catheter Assessment [RC] ASDIRECTED
[2018-12-29] MEDS ORDERED: Sodium Chloride 0.9% 1,000 ML IV SCH (18:30)
[2018-12-29] MEDS ORDERED: Iopamidol 612 MG/ML 100 ML Bottle IVPUSH ONE (19:12)
[2018-12-29] MEDS ORDERED: Pantoprazole 80 MG in Sodium Chloride 0.9% 100 ML IV SCH (19:45)
--- NOTE | 2018-12-29 20:35 | CT ---
CT abdomen and pelvis Technique: Multiple axial sections were obtained from above the dome of the diaphragm inferiorly through the pubic symphysis. Intravenous contrast was utilized. No oral contrast has been given. Lack of oral contrast diminishes details. Delayed images were also obtained through the abdomen and pelvis. Comparison: No prior abdominal or pelvic CT exam. Findings: Visualized lung bases shows a small subpleural bleb within the right base. Nothing acute is seen within either lung base. Liver shows no focal parenchymal abnormality. Spleen appears within normal limits. Incidental parapelvic cysts are seen within both kidneys. Cortical cyst is noted within the left kidney measuring 1.9 cm. There is contrast excretion on delayed images into both ureters and within the bladder. Adrenal glands show no nodule. Pancreas is within normal limits. Gallbladder not well seen due to motion artifact but no definite calcified gallstones are seen. Aorta shows atherosclerotic change without aneurysm. No retroperitoneal adenopathy or mesenteric abnormalities are seen. Numerous diverticuli are seen within the descending and sigmoid regions without definite diverticulitis. Air is noted within the endometrial cavity of the uterus of uncertain etiology. No free fluid or inflammatory change is seen within the abdomen or within the pelvis. Bone window settings shows degenerative change within the spine most prominent at L3-L4 and L4-L5. Impression: 1. Nonspecific air within the endometrial cavity of the uterus. 2. Other incidental findings. Nothing acute is otherwise seen on CT study of the abdomen and pelvis. Diagnostic code #3
== END 2018-12-29 22:30 | disposition home or self-care (01) ==
LOC: JD.ED 17:32
DX: R19.5 Other fecal abnormalities (principal); R10.13 Epigastric pain; B96.81 Helicobacter pylori [H. pylori] as the cause of diseases classified elsewhere; G20 Parkinson's disease; K21.9 Gastro-esophageal reflux disease without esophagitis; Z79.899 Other long term (current) drug therapy; Z88.8 Allergy status to other drugs, medicaments and biological substances
CPT/HCPCS: 36415; 74177; 80053; 81001; 83605; 83690; 85007; 85027; 85610; 85730; 86140; 86677; 96365; 96366; 99285; C9113; J7030; J7040; Q9967; 99284

== ENCOUNTER 2019-02-08 07:17 | Day surgery (SDC) | payer MEDICARE, MEDICAID ==
[~2019-02-08 07:17] MED LIST: Lactated Ringers 1,000 ML IV SCH; Lidocaine 1%/Sod Bicarbonate in NS 8.4% 1 ML Syringe IDERM PRN; Midazolam 1 MG/ML 2 ML SDV ONE; Propofol 200 MG/20 ML SDV ONE; Sodium Chloride 0.9% 10 ML Syringe FLUSH PRN; fentaNYL 100 MCG/2 ML SDV ONE
[2019-02-08] MEDS ORDERED: Haloperidol Lactate 5 MG/ML SDV IM ONE ×2 (08:21→10:30)
--- NOTE | 2019-02-08 08:24 | PCM.PREANE ---
Preanesthetic Assessment - Procedure Proposed Procedure: EGD and colonoscopy - Anesthesia/Transfusion/Family Hx Anesthesia History: Unknown Family History of Anesthesia Reaction: No Transfusion History: Unknown - Review of Systems General: No Symptoms Pulmonary: No Symptoms Cardiovascular: No Symptoms Gastrointestinal: Constipation Neurological: Other (Mentally challenged) Other: Reports: Easy Bleeding, Anxiety - Physical Assessment NPO Status Date: 02/07/19 NPO Status Time: 00:00 ASA Class: 3 Mental Status: Other (mentally challenged) Airway Class: Mallampati = 2 Dentition: Reports: Missing Tooth/Teeth Thyro-Mental Finger Breadths: 2 Mouth Opening Finger Breadths: 2 ROM/Head Extension: Limited/Partial Lungs: Clear to Auscultation, Normal Respiratory Effort Cardiovascular: Regular Rate, Regular Rhythm - Allergies Allergies/Adverse Reactions: Allergies Allergy/AdvReac Type Severity Reaction Status Date / Time artificial sweetners Allergy Cannot Uncoded 02/07/19 11:33 Remember - Blood Blood Available: No Product(s) Available: None - Anesthesia Plan Pre-Op Medication Ordered: None - Acknowledgements Anesthesia Type Planned: MAC Pt an Appropriate Candidate for the Planned Anesthesia: Yes Alternatives and Risks of Anesthesia Discussed w Pt/Guardian: Yes Pt/Guardian Understands and Agrees with Anesthesia Plan: Yes PreAnesthesia Questionnaire HEENT History: Reports: Cataract Cardiovascular History: Reports: None Respiratory History: Reports: Bronchitis, Recurrent Gastrointestinal History: Reports: Diverticulosis, GERD, Other (See Below) Other Gastrointestinal History: PKU [employer] History: Reports: None Musculoskeletal History: Reports: Osteoporosis, Other (See Below) Other Musculoskeletal History: dislocated shoulder, fibula fracture, patellar fracture Neurological History: Reports: Parkinson's, Other (See Below) Other Neuro History: tardive dyskinesia, acute encephalopathy, frontal brain mass, tremor Psychiatric History: Reports: Other (See Below) Other Psychiatric History: severe mental retardation Endocrine/Metabolic History: Reports: None, Other (See Below) Hematologic History: Reports: None Immunologic History: Reports: None Oncologic (Cancer) History: Reports: None Dermatologic History: Reports: None - Past Surgical History Head Surgeries/Procedures: Reports: None HEENT Surgical History: Reports: None Cardiovascular Surgical History: Reports: None Respiratory Surgical History: Reports: None GI Surgical History: Reports: Colonoscopy Female Surgical History: Reports: Breast Biopsy Male Surgical History: Reports: None Endocrine Surgical History: Reports: None Neurological Surgical History: Reports: Other (See Below) Other Neurological Surgeries/Procedures: brain surgery, craniectomy Musculoskeletal Surgical History: Reports: Other (See Below) Oncologic Surgical History: Reports: None Dermatological Surgical History: Reports: None - SUBSTANCE USE Smoking Status *Q: Never Smoker Recreational Drug Use History: No - HOME MEDS Home Medications: Home Meds Calcium Carbonate/Vitamin D3 [Calcium 500-Vit D3 200 Caplet] 500 tab PO TID [History] Carbidopa/Levodopa [Carbidopa-Levo 10-100 mg Odt] 1 tab PO BID 07/09/16 [History ] Carbidopa/Levodopa [Carbidopa-Levodopa 25-100 Tab] 1 tab PO BEDTIME 07/09/16 [ History] Docusate Calcium [Jeramy-Tin] 240 mg PO BID 07/09/16 [History] Multivit-Min/FA/Lycopene/Lut [Certavite Sr-Antioxidant Tab] 1 tab PO DAILY 07/09 [History] Omeprazole 20 mg PO DAILY 07/09/16 [History] Primidone 200 mg PO DAILY 07/09/16 [History] risperiDONE 1 mg PO QAM 07/09/16 [History] Escitalopram [Lexapro] 20 mg PO DAILY 05/27/18 [History] Psyllium Husk (With Sugar) [Natural Fiber Powder] 1 tsp PO BID 05/27/18 [History ] Triamcinolone Acetonide [Triamcinolone Acetonide 0.1% Crm] 1 applic TOP BID PRN 12/29/18 [History] risperiDONE 2 mg PO BEDTIME 12/29/18 [History] Divalproex Sodium [Depakote] 500 mg PO BID 02/07/19 [History] Fesoterodine Fumarate [Toviaz] 4 mg PO QAM 02/07/19 [History] Nystatin/Triamcinolone Crm [Mycolog Crm] 1 dose TOP BID PRN 02/07/19 [History] Simethicone 80 mg PO Q4H PRN 02/07/19 [History] - CURRENT (IN HOUSE) MEDS Current Meds: Current Medications Lactated Ringer's (Ringers, Lactated) 1,000 mls @ 125 mls/hr IV ASDIRECTED MERRY Stop: 02/08/19 23:00 Lidocaine/Sodium Bicarbonate (Buffered Lidocaine 1% In Ns 8.4%) 0.25 ml IDERM ONETIME PRN PRN Reason: Prior to IV Start Stop: 02/08/19 18:00 Sodium Chloride (Saline Flush) 10 ml FLUSH ASDIRECTED PRN PRN Reason: Keep Vein Open Stop: 02/08/19 18:00 Discontinued Medications Fentanyl (Sublimaze) Confirm Administered Dose 100 mcg .ROUTE .STK-MED ONE Stop: 02/08/19 07:09 Midazolam HCl (Versed 1 Mg/Ml) Confirm Administered Dose 2 mg .ROUTE .STK-MED ONE Stop: 02/08/19 07:09 Propofol (Diprivan 20 Ml) Confirm Administered Dose 400 mg .ROUTE .STK-MED ONE Stop: 02/08/19 07:09
[2019-02-08] MEDS ORDERED: Midazolam 1 MG/ML 2 ML SDV ONE (08:53)
[2019-02-08] MEDS ORDERED: Propofol 200 MG/20 ML SDV ONE ×2 (08:53→12:49)
[2019-02-08] MEDS ORDERED: Midazolam Oral Soln 10 MG/5 ML UD Cup ONE (11:45)
--- NOTE | 2019-02-08 12:56 | PCM.OPNOTE ---
- General Post-Op/Procedure Note Date of Surgery/Procedure: 02/08/19 Operative Procedure(s): EGD and colonoscopy Findings: 1. Hiatal hernia, 2 cm 2. Ascending colon polyp 3. Diverticulosis Pre Op Diagnosis: Hematochezia Post-Op Diagnosis: same Anesthesia Technique: MAC Primary Surgeon: Yanni Bryan Anesthesia Provider: Rommel Bourgeois Pathology: 1. antrum 2. ascending colon polyp EBL in mLs: 0 Complications: none apparent Condition: Good
[2019-02-08 13:32] VITALS: BP 127/48
--- NOTE | 2019-02-08 15:19 | PCM.PRNOTE ---
- Free Text/Narrative Note: Operative Report Date of Procedure: February 08, 2019 Pre Op Diagnosis: Hematochezia Post-Op Diagnosis: . Same Operative Procedures: 1. EGD with biopsy 2. Colonoscopy to the cecum with biopsy Primary Surgeon: Yanni Bryan MD Anesthesia Provider: . Rommel Bourgeois CRNA Anesthesia Technique: MAC IV Fluid Replacement, Intraop: See anesthesia report Output, Urine Amount: 0cc EBL in mLs: 0cc Findings: 1. Hiatal hernia, 2 cm 2. Ascending colon polyp 3. Diverticulosis Specimens: 1. Gastric antrum for H. pylori 2. Ascending colon polyp Drain/Tubes: None Indication: The patient is a 68-year-old lady who presented to the clinic with a history of hematochezia. The patient was accompanied by a caregiver from the nursing facility as she has mental disability and was unable to provide her own history. The patient was consented for a diagnostic EGD and colonoscopy. Risks of bleeding, and perforation were discussed, and the repair gave her and guardian agreed to the risks and wished to proceed. Description of the procedure: The patient was belligerent and did not allow for placement of IV or changing into her down. She was given some sedation with Haldol in the preoperative area as was discussed with the guardian. She was then taken back to the endoscopy suite, and was given additional sedation for placement IV. MAC anesthesia was induced, and the patient was placed in the left lateral decubitus position. A bite block was placed. The patient was The Olympus video endoscope was inserted into the oropharynx and guided under direct vision into the esophagus, stomach, and duodenum. The gastric antrum was inspected and cold biopsy forceps were used to take tissue samples for H. pylori. The duodenal bulb and second portion of the duodenum were unremarkable. The scope was withdrawn to the stomach and retroflexed. There was no increased fluid, food or secretions in the upper gastrointestinal tract. No erosions or ulcers were noted. The scope was withdrawn to the esophagus. A this point we noted a sliding hiatal hernia measuring 2 cm. The Z-line and gastroesophageal junction were located at about 37 cm. No Barretts esophagus changes were noted. The endoscope was then withdrawn. Next, anorectal examination was performed. No lesions, masses or hemorrhoids were noted externally or on palpation. The scope was placed into the rectum and advanced to cecum. Upon reaching the cecum, and the patients cecum was entered. There was moderate tortuosity of the colon requiring abdominal pressure. The ileocecal valve was well visualized and the appendiceal orifice identified. At this point, the scope was slowly withdrawn, paying attention to the mucosa. The patient had adequate bowel prep to visualize polyps 5 mm or greater, 75% of the mucosa was visible. A 5 mm sessile polyp in the ascending colon was noted. This was removed using cold biopsy jumbo forceps. In the rectum, scope was retroflexed and no significant hemorrhoidal tissue was noted. The scope was placed back in the lumen and excess air was aspirated. The scope was removed. The patient tolerated the procedure very well. Complications: None apparent Condition: The patient was transported to PACU in stable condition. Yanni Bryan MD General Surgery
== END 2019-02-08 13:53 | disposition other institution (70) ==
LOC: JD.SDS 07:17
PROVIDERS: ATTEND Surgery
DX: K29.51 Unspecified chronic gastritis with bleeding (principal); K44.9 Diaphragmatic hernia without obstruction or gangrene; D12.2 Benign neoplasm of ascending colon; K57.31 Diverticulosis of large intestine without perforation or abscess with bleeding; K21.9 Gastro-esophageal reflux disease without esophagitis; G93.40 Encephalopathy, unspecified; D64.9 Anemia, unspecified; F79 Unspecified intellectual disabilities; E70.1 Other hyperphenylalaninemias; Z79.899 Other long term (current) drug therapy; Z88.8 Allergy status to other drugs, medicaments and biological substances; Z98.890 Other specified postprocedural states
CPT/HCPCS: 43239; 45380; A9270; J1630; J2250; J2704; J7120; J3010

== ENCOUNTER 2020-09-23 06:49 | Day surgery (SDC) | payer MEDICARE, MEDICAID ==
[~2020-09-23 06:49] MED LIST changes: +Dexamethasone 4 MG/ML 5 ML MDV ONE; +Ketamine 500 mg/10 ML MDV ONE; +Lactated Ringers 1,000 ML ONE; +Lidocaine 1% 4 ML ONE; -Midazolam 1 MG/ML 2 ML SDV ONE; +Midazolam Oral Soln 10 MG/5 ML Oral Syringe PO SCH; +Ondansetron 4 MG/2 ML SDV ONE; +Rocuronium 50 MG/5 ML Vial ONE; -fentaNYL 100 MCG/2 ML SDV ONE; +fentaNYL 250 MCG/5 ML SDV ONE
--- NOTE | 2020-09-23 08:04 | PCM.PREANE ---
Preanesthetic Assessment - Procedure Proposed Procedure: Left knee ARIANNA with bilateral steroid injections of both knees - Anesthesia/Transfusion/Family Hx Anesthesia History: Prior Anesthesia Without Reaction Family History of Anesthesia Reaction: No Transfusion History: No Prior Transfusion(s) Intubation History: Unknown - Review of Systems General: No Symptoms Pulmonary: No Symptoms Cardiovascular: No Symptoms Gastrointestinal: No Symptoms (GERD) Neurological: No Symptoms (History of craniotomy: brain mass/tremors/Parkinson's/Acute Encephalopathy), Tremors Other: Reports: None (PKU/Mentally Retarded), Anxiety - Physical Assessment NPO Status Date: 09/22/20 NPO Status Time: 17:00 Vital Signs: HR:94 Sat:96% Temp:96.9 Resp:16 B/P:120/83 Height: 1.57 m Weight: 66 kg ASA Class: 3 Mental Status: Alert & Oriented x3 (Mentally Retarded/PKU: orientated times person) Airway Class: Mallampati = 2 Dentition: Reports: Normal Dentition, Caries Thyro-Mental Finger Breadths: 3 Mouth Opening Finger Breadths: 3 ROM/Head Extension: Full Lungs: Clear to Auscultation, Normal Respiratory Effort Cardiovascular: Regular Rate, Regular Rhythm, No Murmurs - Lab Values: Laboratory Last Values MRSA (PCR) Negative 09/16/20 15:25 All labs reviewed and noted and within acceptable ranges to proceed with scheduled procedure. - Imaging/EKG Impressions: EKG:SR rate=93, nonspecific T wave flattening - Allergies Allergies/Adverse Reactions: Allergies Allergy/AdvReac Type Severity Reaction Status Date / Time aspartame Allergy Cannot Verified 09/23/20 08:38 Remember - Anesthesia Plan Pre-Op Medication Ordered: None, Other (10mg oral versed in preoperative area.[id number]) - Acknowledgements Anesthesia Type Planned: General Anesthesia Pt an Appropriate Candidate for the Planned Anesthesia: Yes Alternatives and Risks of Anesthesia Discussed w Pt/Guardian: Yes Pt/Guardian Understands and Agrees with Anesthesia Plan: Yes PreAnesthesia Questionnaire HEENT History: Reports: Cataract Cardiovascular History: Reports: None Respiratory History: Reports: Bronchitis, Recurrent Gastrointestinal History: Reports: Diverticulosis, GERD, Other (See Below) Other Gastrointestinal History: PKU Genitourinary History: Reports: Other (See Below) Other Genitourinary History: PKU, frequency, incontinence [employer] History: Reports: None Musculoskeletal History: Reports: Osteoporosis, Other (See Below) Other Musculoskeletal History: dislocated shoulder, fibula fracture, patellar fracture Neurological History: Reports: Parkinson's, Other (See Below) Other Neuro History: tardive dyskinesia, acute encephalopathy, frontal brain mass, tremor Psychiatric History: Reports: Other (See Below) Other Psychiatric History: severe mental retardation Endocrine/Metabolic History: Reports: None, Other (See Below) Hematologic History: Reports: None Immunologic History: Reports: None Oncologic (Cancer) History: Reports: None Dermatologic History: Reports: Other (See Below) Other Dermatologic History: herpes zoster, rash - Infectious Disease History Infectious Disease History: Reports: None - Past Surgical History Head Surgeries/Procedures: Reports: None HEENT Surgical History: Reports: None Cardiovascular Surgical History: Reports: None Respiratory Surgical History: Reports: None GI Surgical History: Reports: Colonoscopy Female Surgical History: Reports: Breast Biopsy Male Surgical History: Reports: None Endocrine Surgical History: Reports: None Neurological Surgical History: Reports: Other (See Below) Other Neurological Surgeries/Procedures: brain surgery, craniectomy Musculoskeletal Surgical History: Reports: Other (See Below) Other Musculoskeletal Surgeries/Procedures:: left patella fx with sx x 2 Oncologic Surgical History: Reports: None Dermatological Surgical History: Reports: None - SUBSTANCE USE Tobacco Use Status *Q: Never Tobacco User Recreational Drug Use History: No - HOME MEDS Home Medications: Home Meds Calcium Carbonate/Vitamin D3 [Calcium 500-Vit D3 200 Caplet] 500 tab PO TID 07/09/16 [History] Carbidopa/Levodopa [Carbidopa-Levo 10-100 mg Odt] 1 tab PO BID 07/09/16 [History] Docusate Calcium [Jeramy-Tin] 240 mg PO BID 07/09/16 [History] Multivit-Min/FA/Lycopen/Lutein [Certavite Sr-Antioxidant Tab] 1 tab PO DAILY 07/09/16 [History] Omeprazole 20 mg PO DAILY 07/09/16 [History] Primidone 200 mg PO DAILY 07/09/16 [History] risperiDONE 3 mg PO BEDTIME 07/09/16 [History] Escitalopram [Lexapro] 20 mg PO DAILY 05/27/18 [History] Psyllium Husk (With Sugar) [Natural Fiber Powder] 1 dose PO DAILY 05/27/18 [History] Triamcinolone Acetonide [Triamcinolone Acetonide 0.1% Crm] 1 applic TOP BID PRN 12/29/18 [History] risperiDONE 2 mg PO DAILY 12/29/18 [History] Divalproex Sodium [Depakote] 250 mg PO QPM 02/07/19 [History] Fesoterodine Fumarate [Toviaz] 8 mg PO QAM 02/07/19 [History] Nystatin/Triamcinolone Crm [Mycolog Crm] 1 dose TOP BID PRN 02/07/19 [History] Simethicone 80 mg PO Q4H PRN 02/07/19 [History] Acetaminophen [Tylenol Arthritis] 650 mg PO BID 09/22/20 [History] Divalproex Sodium [Depakote] 125 mg PO DAILY 09/22/20 [History] Hydrocortisone [Anusol-HC] 1 dose RECTAL BID PRN 09/22/20 [History] Lanolin [Soothe & Cool Medseptic] 1 dose TOP ASDIRECTED PRN 09/22/20 [History] Mirabegron [Myrbetriq] 25 mg PO DAILY 09/22/20 [History] hydrOXYzine HCL [hydrOXYzine] 25 mg PO QID PRN 09/22/20 [History] Acetaminophen/HYDROcodone [[place] 325-5 MG] 0.5 - 1 tab PO Q6H PRN #8 tablet 09/23/20 [Rx] Aspirin [Aspirin EC] 81 mg PO BID #60 tablet. 09/23/20 [Rx] - CURRENT (IN HOUSE) MEDS Current Meds: Current Medications Lactated Ringer's (Ringers, Lactated) 1,000 mls @ 125 mls/hr IV ASDIRECTED MERRY Stop: 09/23/20 23:00 Lidocaine/Sodium Bicarbonate (Buffered Lidocaine 1% In Ns 8.4%) 0.25 ml IDERM ONETIME PRN PRN Reason: Prior to IV Start Stop: 09/23/20 18:00 Midazolam HCl (Versed 2 Mg/Ml) 12 mg PO ONETIME MERRY Stop: 09/23/20 12:00 Last Admin: 09/23/20 06:57 Dose: 10 mg Documented by: Sodium Chloride (Saline Flush) 10 ml FLUSH ASDIRECTED PRN PRN Reason: Keep Vein Open Stop: 09/23/20 18:00 Discontinued Medications Bupivacaine HCl (Sensorcaine-Mpf 0.25%) Confirm Administered Dose 40 ml .ROUTE .STK-MED ONE Stop: 09/23/20 07:15 Dexamethasone (Dexamethasone) Confirm Administered Dose 20 mg .ROUTE .STK-MED ONE Stop: 09/23/20 05:52 Fentanyl (Sublimaze) Confirm Administered Dose 250 mcg .ROUTE .STK-MED ONE Stop: 09/23/20 05:53 Lidocaine HCl (Xylocaine-Mpf 1%) Confirm Administered Dose 4 mls @ as directed .ROUTE .STK-MED ONE Stop: 09/23/20 05:52 Lactated Ringer's (Ringers, Lactated) Confirm Administered Dose 1,000 mls @ as directed .ROUTE .STK-MED ONE Stop: 09/23/20 05:52 Ketamine HCl (Ketalar) Confirm Administered Dose 500 mg .ROUTE .STK-MED ONE Stop: 09/23/20 05:54 Miscellaneous Medication (Phenylephrine 1 Mg/10 Ml-Ns) Confirm Administered Dose 1 mg .ROUTE .STK-MED ONE Stop: 09/23/20 05:52 Ondansetron HCl (Zofran) Confirm Administered Dose 4 mg .ROUTE .STK-MED ONE Stop: 09/23/20 05:52 Propofol (Diprivan 20 Ml) Confirm Administered Dose 200 mg .ROUTE .STK-MED ONE Stop: 09/23/20 05:53 Rocuronium [place] (Zemuron) Confirm Administered Dose 50 mg .ROUTE .STK-MED ONE Stop: 09/23/20 05:52 Triamcinolone Acetonide (Kenalog-40) Confirm Administered Dose 80 mg .ROUTE .STK-MED ONE Stop: 09/23/20 07:15
[2020-09-23] MEDS ORDERED: Triamcinolone Acetonide 40 MG/ML 1 ML SDV ONE (09:34)
[2020-09-23] MEDS ORDERED: ePHEDrine 50 MG/ML SDV ONE (09:42)
[2020-09-23] MEDS ORDERED: Lactated Ringers 1,000 ML ONE (09:54)
[2020-09-23] MEDS ORDERED: Midazolam 1 MG/ML 2 ML SDV IVPUSH PRN (10:02)
[2020-09-23] MEDS ORDERED: ePHEDrine 50 MG/ML SDV IVPUSH PRN (10:02)
[2020-09-23] MEDS ORDERED: Ondansetron 4 MG/2 ML SDV IVPUSH PRN (10:02)
[2020-09-23] MEDS ORDERED: fentaNYL 100 MCG/2 ML SDV IVPUSH PRN (10:02)
[2020-09-23] MEDS ORDERED: diphenhydrAMINE 50 MG/ML SDV IVPUSH PRN (10:02)
[2020-09-23] MEDS ORDERED: HYDROmorphone 0.5 MG/0.5 ML Syringe IVPUSH PRN (10:03)
[2020-09-23] MEDS: Bupivacaine 0.25% 10 ML SDV ONE ×3 (10:10→10:22)
[2020-09-23] MEDS: Triamcinolone Acetonide 40 MG/ML 1 ML SDV ONE ×2 (10:21→10:22)
--- NOTE | 2020-09-23 10:40 | PCM.POSTAN ---
POST ANESTHESIA ASSESSMENT - MENTAL STATUS Mental Status: Alert - VITAL SIGNS Vital Signs: Last Vital Signs Temp 97.1 09/23/20 10:34 Pulse 64 09/23/20 10:34 Resp 19 09/23/20 10:34 BP 135/66 09/23/20 10:34 Pulse Ox 100% 09/23/20 10:34 - RESPIRATORY Respiratory Status: Respiratory Rate WNL, Airway Patent, O2 Saturation Stable, Supplemental Oxygen - CARDIOVASCULAR CV Status: Pulse Rate WNL, Blood Pressure Stable - GASTROINTESTINAL GI Status: No Symptoms - POST OP HYDRATION Hydration Status: Adequate & Stable
[2020-09-23 11:36] VITALS: PULSE 60
[2020-09-23] MEDS ORDERED: Acetaminophen/HYDROcodone 325-5 MG Tab PO PRN ×2 (11:46→11:56)
[2020-09-23 12:57] VITALS: BP 146/71
--- NOTE | 2020-09-24 05:13 | PCM48HPAN ---
Post Anesthesia Note - EVALUATION WITHIN 48HRS OF ANESTHETIC Vital Signs in Normal Range: Yes Patient Participated in Evaluation: Yes Respiratory Function Stable: Yes Airway Patent: Yes Cardiovascular Function Stable: Yes Hydration Status Stable: Yes Pain Control Satisfactory: Yes Nausea and Vomiting Control Satisfactory: Yes Mental Status Recovered: Yes Vital Signs: Last Vital Signs Temp 36.7 C 09/23/20 11:20 Pulse 60 09/23/20 12:15 Resp 16 09/23/20 12:15 BP 146/71 H 09/23/20 12:15 Pulse Ox 95 09/23/20 12:15 - COMMENTS/OBSERVATIONS Free Text/Narrative:: Late entry:
--- NOTE | 2020-09-24 16:33 | CR ---
PROCEDURE INFORMATION: Exam: [place] Fluoroscopy, Up to 1 Hour Physician Time; Radiologist Not Present For Fluoroscopy Exam date and time: 09/23/2020 10:08 AM Age: 70 years old Clinical indication: Condition or disease; Condition/disease: Previous hardware placement of left patella, uncomfortable to patient; Prior surgery; Surgery type: Hardware removal of left patella hardware TECHNIQUE: Imaging protocol: Fluoroscopy , up to 1 hour physician or other qualified health direct care worker time. This radiologist did not supervise this procedure. Exam supervised by facility personnel. Report for radiation dosage reporting and documentation only. COMPARISON: No relevant prior exams. RADIATION DOSE METRICS: Fluoroscopy time (seconds): 5.3 Number of fluoro spot images: 3 Total radiation dose: 0.46 mGy FINDINGS: Procedural imaging: Hardware removal. Notes: Fluoroscopy supervised by facility personnel. See also separate procedure report. IMPRESSION: Fluoroscopy dosage documentation. Thank you for allowing us to participate in the care of your patient. Dictated and Authenticated by: Eulogio Doty MD 09/23/2020 11:45 AM Central Time ([place] & [place]) [id number]
--- NOTE | 2020-10-05 10:54 | PCM.OPNOTE ---
- General Post-Op/Procedure Note Date of Surgery/Procedure: 09/23/20 Operative Procedure(s): left knee hardware removal with bilateral knee steroid injections Pre Op Diagnosis: painful hardware left knee. bilateral knee osteoarthrosis Post-Op Diagnosis: Same Anesthesia Technique: General LMA, Local Primary Surgeon: Merrill Flores Anesthesia Provider: Maryan Ramires Starting Gate Driver: Dayan Cohn EBItzel in mLs: 5 Complications: None Condition: Good
--- NOTE | 2020-10-05 11:30 | OR ---
DATE OF OPERATION: 09/23/2020 SURGEON: Merrill Flores MD OPERATION PERFORMED: Left knee hardware removal with bilateral knee steroid injections. PREOPERATIVE DIAGNOSIS: 1. Painful hardware, left knee. 2. Bilateral knee osteoarthrosis. POSTOPERATIVE DIAGNOSIS: 1. Painful hardware, left knee. 2. Bilateral knee osteoarthrosis. ANESTHESIA: General LMA with local. ANESTHESIA PROVIDER: Maryan Ramires CRNA [employer] OPERATOR: Dayan Cohn PA-C ESTIMATED BLOOD LOSS: 5 mL. COMPLICATIONS: None. CONDITION: Stable. DESCRIPTION OF PROCEDURE: The patient was identified in the preoperative holding area. Proper site was marked and identified by the surgeon. The patient was taken back to the operating theater where after adequate anesthesia, the patient's left lower extremity was sterilely prepped and draped in the usual sterile fashion. OR time-out was performed. The patient received 2 g IV Ancef. The left lower extremity was then exsanguinated. Tourniquet was insufflated to 250 mmHg. The hardware was palpable just under the skin near the superior pole of the patella on the lateral side. At this time, a skin incision was made down to the hardware which was identified. A pin cutter then was used to cut to the bent portion of the proximal portion of the pin on the lateral side. Another incision was made inferiorly and the pin was removed from the inferior pole of the patella. The lateral pin was shown to be completely removed. The medial pin was found to not be palpable through the skin, was not causing any irritation. At this time, it was decided we would not do any further dissection to remove further hardware. At this time, adequate saline was irrigated through the wounds. 2-0 Vicryl was used subcutaneously and Monocryl was used for closure of the skin. After this was completed under sterile technique, 2 mL of 40 mg Kenalog and 4 mL of 0.25% Marcaine were injected to bilateral knees. The patient tolerated all procedures well and was sent to PACU in stable condition. MMODAL /[id number]
== END 2020-09-23 12:39 | disposition home or self-care (01) ==
LOC: JD.SDS 06:49
PROVIDERS: ATTEND Orthopaedic Surgery
DX: M17.0 Bilateral primary osteoarthritis of knee (principal); T84.84XA Pain due to internal orthopedic prosthetic devices, implants and grafts, initial encounter; K21.9 Gastro-esophageal reflux disease without esophagitis; Z01.812 Encounter for preprocedural laboratory examination; Z20.828 Contact with and (suspected) exposure to other viral communicable diseases; Z79.899 Other long term (current) drug therapy; Z88.8 Allergy status to other drugs, medicaments and biological substances; Z91.02 Food additives allergy status; Z98.890 Other specified postprocedural states
CPT/HCPCS: 20610; 20680; 76000; 87641; A9270; J1100; J2001; J2405; J2704; J2710; J3010; J3301; J3490; J7120; U0002; 01400; J2370

== ENCOUNTER 2024-08-23 00:53 | Emergency (ER) | payer MEDICARE, MEDICAID ==
[2024-08-23] MEDS: Lidocaine 1% 10 ML MDV INJECT ONE (03:09)
[2024-08-23 03:44] VITALS: BP 135/80; PULSE 88
[2024-08-23] MEDS: Acetaminophen/oxyCODONE 325-5 MG Tab PO ONE (03:53)
[2024-08-23] MEDS: Ondansetron 4 MG Tab.DIS PO ONE (03:53)
== END 2024-08-23 03:54 | disposition home or self-care (01) ==
LOC: JD.ED 00:53
DX: S09.90XA Unspecified injury of head, initial encounter (principal); S82.831D Other fracture of upper and lower end of right fibula, subsequent encounter for closed fracture with routine healing; S01.01XA Laceration without foreign body of scalp, initial encounter; K21.9 Gastro-esophageal reflux disease without esophagitis; Z88.8 Allergy status to other drugs, medicaments and biological substances; Z79.899 Other long term (current) drug therapy; W19.XXXA Unspecified fall, initial encounter; W22.8XXA Striking against or struck by other objects, initial encounter
CPT/HCPCS: 12001; 29125; 70450; 70450-26; 72125; 72125-26; 73552-26-RT; 73552-RT; 73590-26-RT; 73590-RT; 99283; 99284-25; A9270-GY; J3490

== ENCOUNTER 2024-08-23 12:19 | Emergency (ER) | payer MEDICARE, MEDICAID ==
[2024-08-23] MEDS: Sodium Chloride 0.9% 10 ML Syringe FLUSH PRN (15:20)
[2024-08-23] MEDS: Propofol 200 MG/20 ML SDV IVPUSH ONE (15:22)
[2024-08-23 17:35] VITALS: BP 142/72; PULSE 81
== END 2024-08-23 16:35 | disposition home or self-care (01) ==
LOC: JD.ED 12:19
DX: S93.04XA Dislocation of right ankle joint, initial encounter (principal); S82.831D Other fracture of upper and lower end of right fibula, subsequent encounter for closed fracture with routine healing; J40 Bronchitis, not specified as acute or chronic; K21.9 Gastro-esophageal reflux disease without esophagitis; E66.9 Obesity, unspecified; Z79.899 Other long term (current) drug therapy; Z88.8 Allergy status to other drugs, medicaments and biological substances; W19.XXXA Unspecified fall, initial encounter; G20.A1 Parkinson's disease without dyskinesia, without mention of fluctuations
CPT/HCPCS: 12001; 27840; 29125; 70450; 72125; 73552; 73590; 73610; 99152; 99283; 99284; A9270; J2704; J3490

== ENCOUNTER 2024-09-04 09:19 | Day surgery (SDC) | payer MEDICARE, MEDICAID ==
[~2024-09-04 09:19] MED LIST changes: -Dexamethasone 4 MG/ML 5 ML MDV ONE; -Ketamine 500 mg/10 ML MDV ONE; -Lactated Ringers 1,000 ML IV SCH; -Lactated Ringers 1,000 ML ONE; -Lidocaine 1% 4 ML ONE; -Lidocaine 1%/Sod Bicarbonate in NS 8.4% 1 ML Syringe IDERM PRN; -Midazolam Oral Soln 10 MG/5 ML Oral Syringe PO SCH; -Ondansetron 4 MG/2 ML SDV ONE; -Propofol 200 MG/20 ML SDV ONE; -Rocuronium 50 MG/5 ML Vial ONE; +Sodium Chloride 0.9% 10 ML Syringe FLUSH SCH; -fentaNYL 250 MCG/5 ML SDV ONE
[2024-09-04] MEDS ORDERED: Ketamine 200 MG/20 ML MDV ONE (09:43)
[2024-09-04] MEDS: Midazolam Oral Soln 10 MG/5 ML Oral Syringe PO ONE (09:50)
[2024-09-04] MEDS: Lactated Ringers 1,000 ML IV SCH (09:55)
[2024-09-04] MEDS ORDERED: Propofol 200 MG/20 ML SDV ONE (10:10)
[2024-09-04] MEDS ORDERED: Lidocaine 1% 5 ML VIAL ONE (10:11)
[2024-09-04] MEDS ORDERED: fentaNYL 250 MCG/5 ML SDV ONE (10:11)
[2024-09-04] MEDS ORDERED: dexmedeTOMIDine HCl 200 MCG/2 ML SDV ONE (10:16)
[2024-09-04] MEDS ORDERED: Ropivacaine 0.5% 5 MG/ML 30 ML SDV ONE (10:18)
[2024-09-04] MEDS ORDERED: ePHEDrine 50 MG/ML SDV ONE (11:09)
[2024-09-04] MEDS ORDERED: ceFAZolin 2 GM Vial ONE (11:10)
[2024-09-04 11:13] LABS: BASOPHILS PERCENT AUTO 0.6 % (0.0-1.0); EOSINOPHILS ABSOLUTE AUTO 0.1 K/mm3 (0.0-0.4); EOSINOPHILS PERCENT AUTO 1.7 % (0.0-6.0); HEMATOCRIT 35.6 % (37.0-47.0); HEMOGLOBIN 11.5 gm/dl (12.0-16.0); IMMATURE GRAN ABSOLUTE AUTO 0.02 K/mm3 (0.00-0.05); IMMATURE GRAN PERCENT AUTO 0.4 % (0.0-0.4); LYMPHOCYTES ABSOLUTE AUTO 0.7 K/mm3 (1.0-4.8); LYMPHOCYTES PERCENT AUTO 13.2 % (24.0-44.0); MEAN CORPUSCULAR HEMOGLOBIN 32.3 pg (28.0-32.0); MEAN CORPUSCULAR HGB CONC 32.3 g/dl (32.0-36.0); MEAN PLATELET VOLUME 9.1 fl (9.4-12.3); MONOCYTES ABSOLUTE AUTO 0.5 K/mm3 (0.0-0.8); MONOCYTES PERCENT AUTO 8.8 % (0.0-8.0); NEUTROPHILS ABSOLUTE AUTO 4.1 K/mm3 (1.8-7.7); NEUTROPHILS PERCENT AUTO 75.3 % (41.0-71.0); PLATELET COUNT,PLT 410 K/mm3 (150-400); RED BLOOD CELL COUNT 3.56 M/mm3 (4.10-5.30); WHITE BLOOD CELL COUNT,WBC 5.44 K/mm3 (3.9-11.3)
[2024-09-04] MEDS ORDERED: Dexamethasone 4 MG/ML 5 ML MDV ONE (11:19)
[2024-09-04] MEDS ORDERED: Ondansetron 4 MG/2 ML SDV ONE (11:19)
[2024-09-04 11:35] LABS: ANION GAP 17.3 (5-15); BLOOD UREA NITROGEN,BUN 7 mg/dL (7-18); BUN/CREATININE RATIO 11.7 (14-18); CALCIUM 9.1 mg/dL (8.5-10.1); CARBON DIOXIDE,CO2 24 mEq/L (21-32); CHLORIDE,CL 103 mEq/L (98-107); CREATININE 0.6 mg/dL (0.55-1.02); ESTIMATED GFR 94 mL/min (>60); GLUCOSE RANDOM 107 mg/dL (70-99); POTASSIUM,K 4.3 mEq/L (3.5-5.1); SODIUM,NA 140 mEq/L (136-145)
[2024-09-04] MEDS ORDERED: fentaNYL 100 MCG/2 ML SDV IVPUSH PRN (11:56)
[2024-09-04] MEDS ORDERED: fentaNYL 100 MCG/2 ML SDV ONE (12:07)
[2024-09-04] MEDS ORDERED: Lactated Ringers 1,000 ML IV ONE (12:30)
[2024-09-04] MEDS: HYDROmorphone 0.5 MG/0.5 ML Syringe IVPUSH ONE (14:05)
[2024-09-04] MEDS: Acetaminophen/oxyCODONE 325-5 MG Tab PO PRN (14:45)
[2024-09-04 15:41] VITALS: BP 147/92; PULSE 94
== END 2024-09-04 15:10 | disposition home or self-care (01) ==
LOC: JD.SDS 09:19
PROVIDERS: ATTEND Orthopaedic Surgery
DX: S82.851A Displaced trimalleolar fracture of right lower leg, initial encounter for closed fracture (principal); G20.A1 Parkinson's disease without dyskinesia, without mention of fluctuations; K21.9 Gastro-esophageal reflux disease without esophagitis; Z79.899 Other long term (current) drug therapy; X58.XXXA Exposure to other specified factors, initial encounter
CPT/HCPCS: 27814; 36415; 76000; 80048; 85025; C1713; C1776; J0690; J1100; J1171; J2405; J2704; J2795; J3010; J7120; 01480; 64450; 99100; A9270-GY; J3490

== ENCOUNTER 2024-12-05 09:10 | Emergency (ER) | payer MEDICARE, MEDICAID ==
[2024-12-05 12:22] VITALS: BP 149/88; PULSE 98
== END 2024-12-05 11:48 | disposition home or self-care (01) ==
LOC: JD.ED 09:10
DX: S92.032A Displaced avulsion fracture of tuberosity of left calcaneus, initial encounter for closed fracture (principal); K21.9 Gastro-esophageal reflux disease without esophagitis; E66.9 Obesity, unspecified; Z79.899 Other long term (current) drug therapy; Z88.8 Allergy status to other drugs, medicaments and biological substances; X58.XXXA Exposure to other specified factors, initial encounter
CPT/HCPCS: 73620-26-LT; 73620-LT; 99283

== ENCOUNTER 2025-03-12 07:38 | Emergency (ER) | payer MEDICARE, MEDICAID ==
[2025-03-12] MEDS: Acetaminophen/HYDROcodone 325-5 MG Tab PO ONE (08:18)
[2025-03-12 10:38] VITALS: BP 158/74; PULSE 85
== END 2025-03-12 10:00 | disposition home or self-care (01) ==
LOC: JD.ED 07:38
DX: M25.561 Pain in right knee (principal); K21.9 Gastro-esophageal reflux disease without esophagitis; Z88.8 Allergy status to other drugs, medicaments and biological substances; Z79.01 Long term (current) use of anticoagulants; Z79.899 Other long term (current) drug therapy
CPT/HCPCS: 73552-26-RT; 73552-RT; 73590-26-RT; 73590-RT; 99283; 99284; A9270-GY

== ENCOUNTER 2025-04-28 12:24 | Emergency (ER) | payer MEDICARE, MEDICAID ==
[2025-04-28] MEDS: Sodium Chloride 0.9% 1,000 ML IV STA (13:34)
[2025-04-28] MEDS: Ondansetron 4 MG/2 ML SDV IVPUSH ONE (13:34)
[2025-04-28] MEDS: Sodium Chloride 0.9% 10 ML Syringe FLUSH PRN (13:35)
[2025-04-28 13:45] LABS: BASOPHILS ABSOLUTE AUTO 0.1 K/mm3 (0.0-0.2); HEMATOCRIT 40.4 % (37.0-47.0); HEMOGLOBIN 13.3 gm/dl (12.0-16.0); IMMATURE GRAN ABSOLUTE AUTO 0.02 K/mm3 (0.00-0.05); IMMATURE GRAN PERCENT AUTO 0.4 % (0.0-0.4); LYMPHOCYTES ABSOLUTE AUTO 0.9 K/mm3 (1.0-4.8); LYMPHOCYTES PERCENT AUTO 19.2 % (24.0-44.0); MEAN CORPUSCULAR HGB CONC 32.9 g/dl (32.0-36.0); MEAN CORPUSCULAR VOLUME 106.3 fl (83.0-99.0); MONOCYTES ABSOLUTE AUTO 0.4 K/mm3 (0.0-0.8); MONOCYTES PERCENT AUTO 8.5 % (0.0-8.0); NEUTROPHILS ABSOLUTE AUTO 3.4 K/mm3 (1.8-7.7); NEUTROPHILS PERCENT AUTO 70.9 % (41.0-71.0); PLATELET COUNT,PLT 366 K/mm3 (150-400); WHITE BLOOD CELL COUNT,WBC 4.85 K/mm3 (3.9-11.3)
[2025-04-28 14:07] LABS: ALBUMIN 3.4 g/dl (3.4-5.0); ANION GAP 13.8 (5-15); BILIRUBIN TOTAL 0.3 mg/dL (0.2-1.0); CALCIUM 8.9 mg/dL (8.5-10.1); CREATININE 0.5 mg/dL (0.55-1.02); EST CRCL DRUG DOSING (CG) 68.75 mL/min; MAGNESIUM 2.1 mg/dL (1.8-2.4); POTASSIUM,K 3.8 mEq/L (3.5-5.1); PROTEIN TOTAL,TP 6.7 g/dl (6.4-8.2)
[2025-04-28] MEDS ORDERED: Sodium Chloride 0.9% 10 ML Syringe FLUSH PRN (14:35)
[2025-04-28] MEDS: Iopamidol 612 MG/ML 100 ML Bottle IVPUSH ONE (14:37)
[2025-04-28 16:21] LABS: APPEARANCE,URINE CLEAR (Clear); BILIRUBIN,URINE NEGATIVE (Negative); COLOR,URINE COLORLESS (Yellow); GLUCOSE,URINE NEGATIVE (Negative); KETONES,URINE NEGATIVE (Negative); LEUKOCYTE ESTERASE,URINE TRACE (Negative); NITRITE,URINE NEGATIVE (Negative); OCCULT BLOOD,URINE NEGATIVE (Negative); PROTEIN,URINE NEGATIVE (Negative); UROBILINOGEN,URINE 0.2 (0.2-1.0)
[2025-04-28 16:28] LABS: BACTERIA,URINE FEW /hpf (FEW); MUCUS,URINE FEW /hpf (FEW); RBC,URINE 0-5 /hpf (0-5); SQUAMOUS EPITHELIAL CELLS,UR 0-5 /hpf (0-5)
[2025-04-28 19:27] VITALS: BP 165/96; PULSE 96
== END 2025-04-28 17:21 | disposition home or self-care (01) ==
LOC: JD.ED 12:24
DX: N39.0 Urinary tract infection, site not specified (principal); R11.2 Nausea with vomiting, unspecified; K21.9 Gastro-esophageal reflux disease without esophagitis; E66.9 Obesity, unspecified; Z79.899 Other long term (current) drug therapy; Z91.018 Allergy to other foods; Z91.048 Other nonmedicinal substance allergy status
CPT/HCPCS: 36415; 74177; 80053; 81001; 83690; 83735; 85025; 96361; 96374; 99284; C1758; J2405; J7030; Q9967